=== PATIENT | male | born 1955 | race Caucasian/White ===

== ENCOUNTER 2021-01-18 22:16 | Inpatient (IN) | payer MEDICARE, SELFPAY ==
--- NOTE | ~2021-01-18 | US_ITS ---
EXAMINATION: US venous doppler LE RT DATE: 01/19/2021 08:52 INDICATION: Right lower limb edema. TECHNIQUE: Grayscale ultrasound images without and with compression and Doppler ultrasound images of the right lower extremity veins were obtained. COMPARISON: None. FINDINGS: The visualized portions of right common femoral vein, profunda (deep) femoral vein, posterior tibial veins, and greater saphenous vein outflow are patent. There is thrombus in right femoral, popliteal, and peroneal veins. IMPRESSION: 1. Deep vein thrombosis involving right femoral, popliteal, and peroneal veins. Reviewed, dictated and finalized at location B. D MEAT PACKING SUPERVISOR IMPRESSION: 1. Deep vein thrombosis involving right femoral, popliteal, and peroneal veins .
--- NOTE | ~2021-01-18 | CT_ITS ---
EXAMINATION: CT chest abdomen pelvis wo con DATE: 01/19/2021 09:25 INDICATION: Pneumonia. Liver disease. TECHNIQUE: Computed tomography (CT) of the chest, abdomen, and pelvis was performed without intraveno us contrast. Automated exposure control and iterative reconstruction technique were employed. The dos e-length product was 1213.13 mGy-cm. COMPARISON: None FINDINGS: CHEST CT: There is mild scarring at the lung apices. A calcified right lung nodule and calcified right hilar ly mph nodes are consistent with old granulomatous disease. There is mild scarring in paraspinal right l ower lobe. There is a 5 mm nodule in right upper lobe, likely benign. There is a 4 mm nodule in right middle lobe, likely benign. There are mild peripheral airspace opacities in basilar right lower lobe . No pleural effusion. The heart size is normal. There are coronary artery calcifications. No pericar dial effusion. Main pulmonary artery is enlarged, consistent with pulmonary arterial hypertension. Th ere are healing fractures of anterior left second and third ribs. There are multiple other subacute v ersus chronic rib fractures bilaterally. There is mild thoracic spondylosis. ABDOMEN/PELVIS CT: There is diffuse hepatic steatosis. The gallbladder is distended. The spleen, pancreas, adrenal gland s, and kidneys are normal. There is no urolithiasis. The bladder is compressed by a Kirby catheter. T he prostate is moderately enlarged. There is diverticulosis of the colon without evidence of divertic ulitis. There are no dilated loops of bowel. The appendix is normal. There are no pathologically enla rged lymph nodes. There is no free intraperitoneal fluid. There is a comminuted fracture of right savage tabulum with internal fixation with plates and screws. There is hematoma around the fractures. There is hematoma anterior to the pubic bones and lateral to right iliac crest. Gas in the right psoas musc le is likely from recent surgery. There is a chronic burst fracture of L4. There is moderate lumbar s pondylosis. IMPRESSION: 1. Mild peripheral airspace opacities in basilar right lung lower lobe, consistent with atelectasis/s carring versus pneumonia. 2. Gallbladder distention, which may be secondary to fasting. Correlate with physical exam to exclude acute cholecystitis. 3. Diffuse hepatic steatosis. 4. Comminuted fracture of right acetabulum status post internal fixation with associated subacute hem atomas. Reviewed, dictated and finalized at location B. INE STRIPPER CUTTER IMPRESSION: 1. Mild peripheral airspace opacities in basilar right lung lower lobe, consist ent with atelectasis/scarring versus pneumonia. 2. Gallbladder distention, which may be secondary to fasting. Correlate with ph ysical exam to exclude acute cholecystitis. 3. Diffuse hepatic steatosis. 4. Comminuted fracture of right acetabulum status post internal fixation with a ssociated subacute hematomas.
--- NOTE | ~2021-01-18 | XR_ITS ---
XR chest 2V 01/23/2021 12:19 Indication: Chest pain and weakness Procedure: AP and lateral views of the chest Comparison: 01/18/2021 Findings: Heart size normal. No focal air space disease, pulmonary edema, pleural effusion or suspect ed pneumothorax. Impression: 1: No acute cardiopulmonary disease. Reviewed, dictated and finalized at location A. UNITY MENTAL HEALTH SOCIAL WORKER Impression: 1: No acute cardiopulmonary disease.
--- NOTE | ~2021-01-18 | CT_ITS ---
EXAMINATION: CT BRAIN W/O DATE: 01/18/2021 23:04 INDICATION: Altered mental status. Confusion. TECHNIQUE: Computed tomography (CT) of the head was performed without intravenous contrast. The dose- length product was 681.00 mGy-cm. Automated exposure control and iterative reconstruction technique w ere employed. COMPARISON: No prior studies for comparison. FINDINGS: Generalized atrophy. Normal barnes-white differentiation. No acute intracranial hemorrhage, i nfarction, mass or mass effect. No ventriculomegaly or midline shift. Midline sagittal images demonstrate a normal corpus callosum, c raniovertebral junction and sella turcica. Basilar cisterns are patent. Paranasal sinuses and mastoids are pneumatized. No depressed skull fractures. IMPRESSION: 1. No acute intracranial abnormality. Reviewed, dictated and finalized at location A. N TIER
--- NOTE | ~2021-01-18 | CT_ITS ---
EXAMINATION: CT brain wo con DATE: 01/20/2021 14:05 INDICATION: Altered mental status. TECHNIQUE: Computed tomography (CT) of the head was performed without intravenous contrast. The mA wa s adjusted according to patient size. Iterative reconstruction technique was employed. The dose-lengt h product was 605.33 mGy-cm. COMPARISON: Head CT 01/18/2021 FINDINGS: There is no intracranial hemorrhage, acute infarction, or abnormal intracranial mass lesion . The ventricles are normal in size. The orbits are normal. There is mild mucosal thickening in the p aranasal sinuses. The mastoid air cells are normal. IMPRESSION: 1. Normal brain. Reviewed, dictated and finalized at location B. NG INSPECTOR IMPRESSION: 1. Normal brain.
--- NOTE | ~2021-01-18 | XR_ITS ---
EXAMINATION: XR hip RT 2V w AP pelvis EXAM DATE: 01/19/2021 02:14 INDICATION: Recent surgery, right leg injury. TECHNIQUE: Right hip frontal, 'frog leg' projections for interpretation. Frontal projection pelvis. There is no prior study for comparison. FINDINGS: Smooth right hip femoral head contour, no radiographic evidence of avascular necrosis. Th ere is right iliac plate with supporting screws. There are no acute fractures identified. There is mo derate symmetric bilateral hip primary osteoarthritis. IMPRESSION: No acute pelvic, right hip findings. Reviewed, dictated and finalized at location A. WELDER
--- NOTE | ~2021-01-18 | XR_ITS ---
XR chest 1V 01/18/2021 23:07 Indication: Transient alteration of awareness Procedure: AP view of the chest Comparison: No prior studies for comparison. Findings: Upper lobe airspace disease bilaterally. Cardiomegaly. No significant effusion, edema or pn eumothorax. Impression: 1: Bilateral upper lobe airspace disease, compatible with pneumonia. 2: Cardiomegaly. Reviewed, dictated and finalized at location A. SUPERVISOR Impression: 1: Bilateral upper lobe airspace disease, compatible with pneumonia. 2: Cardiomegaly.
--- NOTE | 2021-01-18 22:35 | ED.AMS ---
HPI - Altered Mental Status General Chief Complaint: Altered Mental Status Stated Complaint: sent for ct of head for confusion Time Seen by Provider: 01/18/21 22:33 Source: patient, EMS and RN notes reviewed Mode of arrival: EMS Limitations: altered mental status History of Present Illness HPI narrative: Patient is a 65-year-old male with a history hypertension, alcoholism of recent acetabular fracture of the right lower extremity, presenting to us from [facility] for evaluation of altered mental status. Patient reportedly had a ground-level fall on January 08 and was taken to [facility] where he was found to have the injury to the right extremity and transferred from [facility] to [facility]. Patient had surgery on January 08, and was discharged home from [facility] on January 13 to [facility]. Over the past 36 hours, patient has been increasingly confused, hallucinating, grabbing at objects in the air. This morning, patient was alert and oriented to person, place, and to time but thought that he was in the [facility]. At that point he was able to identify his . The physician overseeing the rehab facility obtained labs and noted the patient's past hemoglobin was 7.8. They had an ultrasound of the right lower leg due to increased swelling and patient had a DVT present. A stat ammonia level was drawn at 7 PM per physician. Patient reportedly has been taking oxycodone and Flexeril for pain which has now been discontinued. Per chart review and discussion with physician Dr. Villar[facility], patient had an acute DVT in the right superficial femoral vein and right popliteal into entire right peroneal veins diagnosed today. Patient given 1.5 mg/kg of Lovenox today after discussion with pharmacist on how they should dose patient. Hemoglobin on January 14 was 7.8. Patient is currently sleepy, but arousable. He is alert, oriented to person, place, and to time. Denies any acute complaints. Related Data Allergies Allergy/AdvReac Type Severity Reaction Status Date / Time No Known Allergies Allergy Verified 01/13/21 16:34 Review of Systems Review of Systems: CONSTITUTIONAL: Denies fever, chills, or sweats. EYES: Denies visual changes, redness, or discharge. ENT: Denies rhinorrhea, congestion, sore throat, or otalgia. CARDIOVASCULAR: Denies chest pain, palpitations, report right leg swelling RESPIRATORY: Denies cough or dyspnea. GASTROINTESTINAL: Denies abdominal pain, nausea, vomiting, or diarrhea. GENITOURINARY: Denies dysuria or hematuria. SKIN: Denies rash or itching. MUSCULOSKELETAL: Denies back pain, reports mild right hip pain NEUROLOGIC: Denies headache, numbness, or weakness. [facility] Past Medical History Medical History (Updated 01/19/21 @ 01:58 by Tonya Roberto MD) Acute encephalopathy Acute postoperative pain Alcoholism Hypertension Postoperative anemia due to acute blood loss Rhabdomyolysis Right acetabular fracture Transaminitis Urinary retention Family History Family History Mother Acute myocardial infarction History of blood clots Congestive heart failure Hypertension Sibling Hypertension Social History Social History (Updated 01/18/21 @ 22:52 by Tonya Roberto MD) Social History: patient lives with his and 13-year-old son. Patient lives in a 2 story home. Patient is able to live downstairs . Patient only has a half bath on the 1st level. 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 He also has a 40-year-old son that lives nearby. Smoking status: Former smoker Tobacco type: cigarettes Second hand tobacco smoke exposure: No Alcohol intake: former Alcohol use details: history of alcoholism Substance use: unknown Gender identity (if verbalized by the patient): Male Exam Narrative: GENERAL:
--- NOTE | 2021-01-18 22:52 | ECG_ITS ---
Measurements Intervals [place] Rate: 82 P: 78 MT: 197 QRS: -1 QRSD: 101 T: 69 QT: 382 QTc: 448 Interpretive Statements SINUS RHYTHM BORDERLINE ST-T WAVE ABNORMALITY- HIGH LATERAL LEADS BASELINE ARTIFACT- I, III, AVL, AVF, V1, V3 BORDERLINE ECG Electronically Signed On 01-19-2021 6:35:41 CASH ON DELIVERY CLERK by Rashaun Beltre D.O.
[2021-01-18 22:57] VITALS: BP 143/77; PULSE 88; RESP 18; TEMP 37; O2SAT 99
[2021-01-18 23:51] LABS: Basophils Absolute Auto 0.1 K/mm3 (0.0-0.1); Basophils Percent Auto 0.8 % (0.2-1.2); Eosinophils Absolute Auto 0.1 K/mm3 (0-0.3); Eosinophils Percent Auto 1.8 % (0-4.4); Hematocrit 28.2 % (42.0-52.0); Hemoglobin 8.7 g/dL (14.0-18.0); Immature Granulocyte Absolute 0.11 K/mm3 (0.00-0.031); Immature Granulocyte Percent A 1.4 % (0-0.5); Lymphocytes Absolute Auto 1.68 K/mm3 (0.9-3.2); Lymphocytes Percent Auto 21.9 % (18.3-44.2); Mean Corpuscular HGB Conc 30.9 g/dl (32-36); Mean Corpuscular Hemoglobin 29.9 pg (26-34); Mean Corpuscular Volume 96.9 fl (80-100); Mean Platelet Volume 8.9 fl (7.4-10.4); Monocytes Percent Auto 13.3 % (2.6-8.5); Neutrophils Absolute Auto 4.7 K/mm3 (1.3-6.7); Neutrophils Percent Auto 60.8 % (45.5-73.1); Platelet Count Result 415 k/mm3 (150-375); Red Blood Count 2.91 M/mm3 (4.6-6.20); Red Cell Distribution Width 15.7 % (11.5-14.5); White Blood Count 7.7 K/mm3 (4.5-10.0)
[2021-01-19] VITALS (8 sets, daily range): BP systolic 105–171; BP diastolic 72–81; PULSE 85–91; RESP 18–20; TEMP 36.3–36.5; O2SAT 97–100; BMI 28.2
[2021-01-19] LABS: Ammonia < 9 umol/L (9-30)
[2021-01-19 00:01] LABS: INR 1.2; Lactic Acid Reflex 0.7 mmol/L (0.7-2.1); Prothrombin Time 14.8 Seconds (11.1-14.7)
[2021-01-19 00:02] LABS: Alanine Aminotransferase 22 U/L (4-50); Albumin Level 3.5 g/dL (3.5-5.1); Alkaline Phosphatase 208 U/L (38-126); Anion Gap 6 mmol/L (8-16); Aspartate Amino Transferase 36 U/L (17-59); Bilirubin,Total 0.8 mg/dL (0.2-1.3); Blood Urea Nitrogen 11 mg/dL (9-20); Calcium 8.2 mg/dL (8.4-10.2); Carbon Dioxide 30 mmol/L (22-30); Chloride 101 mmol/L (98-107); Estimated Glomerular Filt Rate > 60; Glucose 101 mg/dL (65-110); Partial Thromboplastin Time 45.1 SECONDS (22.3-36.8); Potassium 3.8 mmol/L (3.4-5.0); Sodium 137 mmol/L (137-145)
[2021-01-19 00:13] LABS: Troponin I < 0.012 ng/mL (0.000-0.034)
[2021-01-19 00:14] LABS: Troponin I < 0.012 ng/mL (0.000-0.034)
[2021-01-19] MEDS: SODIUM CHLORIDE 0.9% IV 1,000 ML 999 ML IV CONT (00:25)
[2021-01-19 00:32] LABS: Add Urine Microscopic? YES; Appearance Urine Cloudy (Clear); Bilirubin Urine Negative (Negative); Blood Urine Negative (Negative); Color Urine Amber (Yellow); Glucose Urine UA Negative (Negative); Ketones Urine 2+ mg/dL (Negative); Leukocyte Esterase Ur Negative LEU/UL (Negative); Mucus Urine Heavy /lpf; Nitrate Urine Negative (Negative); Protein Urine 1+ mg/dL (Negative); Specific Grav Ur 1.024 (1.001-1.035); WBC Urine 0-3 /hpf
[2021-01-19 00:35] LABS: Amphetamine Screen Urine Negative (Negative); Barbiturate Screen Urine Negative (Negative); Benzodiazepines Screen Urine Negative (Negative); Cannabinoid Screen Urine Negative (Negative); Cocaine Screen Urine Negative (Negative); Methadone Screen Urine Negative (Negative); Opiate Screen Urine Positive (Negative); Phencyclidine Screen Urine Negative (Negative)
[2021-01-19 02:12] LABS: Creatine Kinase 105 U/L (55-170)
--- NOTE | 2021-01-19 03:26 | PC.NURSE ---
med brown liquid stool bedding changed.
--- NOTE | 2021-01-19 03:35 | PC.NURSE ---
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
--- NOTE | 2021-01-19 03:42 | ADMGEN ---
This patient, Truong Aranda, was admitted to 3 [facility] Surg Room 333-01. Patient/family oriented to hospital policies and general routines including ID bracelet, bed and alarms, visiting hours, pain management, procedures, bathroom and other care routines, personal items, smoking policy, room service/diet, and visiting hours. Information on how to activate the Rapid Response Team has been discussed. Patient/Family are encouraged to report perceived risks to care and to ask questions if they do not understand what they are told or what they should do.
--- NOTE | 2021-01-19 04:30 | PM.IMHP ---
H&P: HPI History of Present Illness Date/Time: 01/19/21 04:30 Chief Complaint: Altered mental status Narrative: Patient is a 65-year-old male presenting to us from [facility] for evaluation of altered mental status. Patient reportedly had a ground-level fall on January 08 and was taken to [facility] where he was found to have the injury to the right extremity and transferred from [facility] to [facility]. Patient had surgery on January 08, and was discharged from [facility] on January 13 to [facility]. Over the past 36 hours, patient has been increasingly confused, hallucinating, grabbing at objects in the air. This morning, patient was alert and oriented to person, place, and to time but thought that he was in the [facility]. At that point he was able to identify his . The physician overseeing the rehab facility obtained labs and noted the patient's past hemoglobin was 7.8. They had an ultrasound of the right lower leg due to increased swelling and patient had a DVT present. Ammonia level was checked which was normal LFTs compared to baseline day of admission. Patient had been on oxycodone and Flexeril for the pain which has been discontinued as well. Patient reportedly has been taking oxycodone and Flexeril for pain which has now been discontinued. Patient was noted to have acute DVT in the right superficial femoral pain in right popliteal into entire right peroneal veins does diagnosed yesterday. Patient has been given 1.5 milligram/kilogram of Lovenox dose. Patient was then transferred to [facility] for further evaluation and management. CT scan of the head was done which was unremarkable. Chest x-ray however showed bilateral upper lobe airspace disease compatible with pneumonia along with, cardiomegaly. With sepsis in of healthcare associated pneumonia is getting admitted for further evaluation and treatment. He is currently confused and not a very good historian. Most of the history is taken from the medical records. Review of Systems Review of Systems: ROS unobtainable: Yes unobtainable due to medical condition and unobtainable due to mental status PMFSH Past Medical History Medical History (Updated 01/19/21 @ 01:58 by Tonya Roberto MD) Acute encephalopathy Acute postoperative pain Alcoholism Hypertension Postoperative anemia due to acute blood loss Rhabdomyolysis Right acetabular fracture Transaminitis Urinary retention Family History Family History Mother Acute myocardial infarction History of blood clots Congestive heart failure Hypertension Sibling Hypertension Social History Social History (Updated 01/18/21 @ 22:52 by Tonya Roberto MD) Social History: patient lives with his and 13-year-old son. Patient lives in a 2 story home. Patient is able to live downstairs . Patient only has a half bath on the 1st level. 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 He also has a 40-year-old son that lives nearby. Smoking status: Former smoker Second hand tobacco smoke exposure: No Alcohol intake: former Alcohol use details: history of alcoholism Substance use: unknown Gender identity (if verbalized by the patient): Male Spiritual care concerns: No Meds Home Medications and Allergies Allergies Allergy/AdvReac Type Severity Reaction Status Date / Time No Known Allergies Allergy Verified 01/19/21 04:58 Vital Signs Vital Signs - 24 hr 01/18/21 22:57 01/19/21 02:58 01/19/21 04:06 Temperature 98.6 F 97.7 F Pulse Rate 88 85 88 Respiratory Rate 18 20 18 Blood Pressure 143/77 H 164/75 H 158/72 H Pulse Oximetry 99 97 97 Exam Narrative: GENERAL: Sleepy but arousable verbalizes some sentences, pale, conversant HEAD: Normocephalic, atraumatic. EYES: PERRLA and EOMI. ENT: Nares clear, no rhinorrhea or epistaxis. Mucous m
[2021-01-19 05:05] LABS: Alveolar/Arterial O2 Gradient 38.2 mmHg; Base Excess ABG 0.7 mEq/l (+/-2.0); Fractional Inspired Oxygen 21 %; HCO3 ABG 24.5 mEq/l (22.0-26.0); Oxygen Content ABG 16.7 %vol (16.0-22.0); Oxygen Saturation ABG 94.4 % (95.0-100.0); Oxyhemoglobin 92.8 % THb (90.0-100.0); PCO2 ABG 36.4 mmHg (35.0-45.0); PO2 ABG 67.9 mmHg (80.0-100.0); PO2 FiO2 Ratio Arterial Blood 3.23 %; Total Hemoglobin 12.8 g/dL (12.0-18.0); pH ABG 7.446 (7.350-7.450)
[2021-01-19 05:08] LABS: Device ROOM AIR; Modified Allen's Test Pass; Site Drawn LEFT RADIAL
[2021-01-19] MEDS: ENOXAPARIN 100 MG/ML SYRINGE SUB-Q ×2 (08:02→17:15)
[2021-01-19] MEDS: SODIUM CHLORIDE 0.9% IV 1,000 ML 70 ML IV CONT (08:03)
[2021-01-19 08:43] LABS: Glucose Point of Care 82 mg/dl (65-105)
[2021-01-19 09:10] LABS: Hemoglobin A1C 4.9 % (<5.7)
[2021-01-19 12:05] LABS: Glucose Point of Care 98 mg/dl (65-105)
--- NOTE | 2021-01-19 16:14 | PM.IMPN ---
Progress Note: A&P Assessment and Plan (1) Acute encephalopathy: Code(s): G93.40 - Encephalopathy, unspecified Status: Acute Assessment and Plan: There are reports that the patient was hallucinating. Patient is aware of this and states he has not had any hallucinations today but does remember having some yesterday. Unfortunately, RN states that he has been having hallucinations today as well. He has no history of this. He is alert oriented x4 for me. This could be from pain medication or baclofen. He also has alcoholic and had a history of alcohol withdrawal but has not had a drink for nearly 2 weeks so this seems less likely. We will draw a B12 and folate. No signs of infection with the UA. Chest abdomen pelvis CT shows possible pneumonia. Medications reviewed. Will monitor (2) S/P ORIF (open reduction internal fixation) fracture: Code(s): Z98.890 - Other specified postprocedural states; Z87.81 - Personal history of (healed) traumatic fracture Status: Acute Assessment and Plan: Continue PT and OT with weight-bearing status -patient history of a fall and had surgery at [facility] 01/08/21 -incision sites clean and dry (3) Postoperative anemia due to acute blood loss: Code(s): D62 - Acute posthemorrhagic anemia Status: Acute Assessment and Plan: Hemoglobin stable, 8.7 around midnight. Will redraw hemoglobin now -he has a subacute hematoma around the fracture anterior to the pubic bone and lateral to the right iliac crest. -will monitor his hemoglobin while on Lovenox. No signs of bleeding at this time (4) Urinary retention: Code(s): R33.9 - Retention of urine, unspecified Status: Acute Assessment and Plan: Continue catheterization -follow-up with urology for voiding trial -continue Flomax (5) DVT (deep venous thrombosis): Code(s): I82.409 - Acute embolism and thrombosis of unspecified deep veins of unspecified lower extremity Status: Acute Assessment and Plan: Right leg DVT likely due to surgery -continue Lovenox -will haley DOAC (6) Hip fracture: Code(s): S72.009A - Fracture of unspecified part of neck of unspecified femur, initial encounter for closed fracture Status: Acute Assessment and Plan: As above (7) Hypertension: Code(s): I10 - Essential (primary) hypertension Status: Acute Assessment and Plan: last bp 105/78 -continue amlodipine (8) Alcoholism: Code(s): F10.20 - Alcohol dependence, uncomplicated Status: Acute Assessment and Plan: Patient states he drinks 4 large glasses a wine daily. He is unable to tell me how many bottles he drinks because he usually drinks from a box. He had no tremors on exam. He had alcohol withdrawal at [facility]. Will continue folic acid and thiamine (9) Pneumonia: Code(s): J18.9 - Pneumonia, unspecified organism Status: Acute Assessment and Plan: Possible pneumonia on the chest CT -continue cefepime and vancomycin -await COVID PCR Additional Plan No RUQ pain or nausea/vomiting/abdominal pain. Gallbaldder distention on CT likely due to fasting. No signs of acute cholecystitis Time Spent With Patient Time with patient: 25 - 35 minutes Subjective Date/time seen: 01/19/21 16:14 Interval history: Pt is a 65-year-old male here for altered mental status. Patient was seen today and has no complaints. He said he felt like he was hallucinating yesterday but has not had any further hallucinations. He has some 5/10 pain in his hip but overall is doing okay. He denies chest pain, shortness of breath, fevers, chills, cough, nausea, vomiting, abdominal pain or headache. Review of Systems Review of Systems: All systems reviewed & are unremarkable except as noted in HPI and below Exam Narrative: General: Well developed well nourished patient in [facility] HEENT: normocepha
[2021-01-19 16:22] LABS: Hematocrit 26.9 % (42.0-52.0); Hemoglobin 8.4 g/dL (14.0-18.0)
[2021-01-19 16:37] LABS: Glucose Point of Care 94 mg/dl (65-105)
[2021-01-19] MEDS: SENNA/DOCUSATE SODIUM TABLET 2 TAB PO (21:21)
[2021-01-19] MEDS: TAMSULOSIN HCL 0.4 MG CAPSULE PO (21:22)
[2021-01-19] MEDS: HYDROcodone/acetaminophen (*CRX) 5-325 MG TABLET 1 TAB PO (21:22)
[2021-01-20 00:29] LABS: Glucose Point of Care 97 mg/dl (65-105)
[2021-01-20] MEDS: ENOXAPARIN 100 MG/ML SYRINGE SUB-Q ×2 (05:18→17:28)
[2021-01-20 05:43] VITALS: BP 158/80; PULSE 79; RESP 18; TEMP 36.6; O2SAT 98
[2021-01-20 06:52] LABS: Basophils Absolute Auto 0.1 K/mm3 (0.0-0.1); Basophils Percent Auto 0.8 % (0.2-1.2); Eosinophils Absolute Auto 0.2 K/mm3 (0-0.3); Eosinophils Percent Auto 2.6 % (0-4.4); Hematocrit 26.1 % (42.0-52.0); Hemoglobin 8.1 g/dL (14.0-18.0); Immature Granulocyte Absolute 0.05 K/mm3 (0.00-0.031); Immature Granulocyte Percent A 0.8 % (0-0.5); Lymphocytes Absolute Auto 0.97 K/mm3 (0.9-3.2); Lymphocytes Percent Auto 14.9 % (18.3-44.2); Mean Corpuscular Hemoglobin 29.2 pg (26-34); Mean Corpuscular Volume 94.2 fl (80-100); Mean Platelet Volume 8.9 fl (7.4-10.4); Monocytes Absolute Auto 0.9 K/mm3 (0.1-0.6); Monocytes Percent Auto 13.1 % (2.6-8.5); Neutrophils Absolute Auto 4.4 K/mm3 (1.3-6.7); Neutrophils Percent Auto 67.8 % (45.5-73.1); Platelet Count Result 386 k/mm3 (150-375); Red Blood Count 2.77 M/mm3 (4.6-6.20); Red Cell Distribution Width 15.1 % (11.5-14.5); White Blood Count 6.5 K/mm3 (4.5-10.0)
[2021-01-20 07:06] LABS: Alanine Aminotransferase 21 U/L (4-50); Albumin Level 3.1 g/dL (3.5-5.1); Alkaline Phosphatase 219 U/L (38-126); Anion Gap 6 mmol/L (8-16); Aspartate Amino Transferase 31 U/L (17-59); Bilirubin,Total 0.7 mg/dL (0.2-1.3); Blood Urea Nitrogen 8 mg/dL (9-20); Calcium 7.7 mg/dL (8.4-10.2); Carbon Dioxide 25 mmol/L (22-30); Chloride 104 mmol/L (98-107); Estimated CRCL calculation 147 ml/min; Estimated Glomerular Filt Rate > 60; Glucose 108 mg/dL (65-110); Potassium 3.7 mmol/L (3.4-5.0); Sodium 135 mmol/L (137-145)
[2021-01-20 08:00] VITALS: O2SAT 98
[2021-01-20] MEDS: amLODIPine BESYLATE 5 MG TABLET PO (08:04)
[2021-01-20] MEDS: FOLIC ACID 1 MG TABLET PO (08:04)
[2021-01-20] MEDS: THIAMINE HCL 100 MG TABLET PO (08:04)
[2021-01-20 08:06] LABS: Folic Acid 15.4 ng/mL (2.76->20)
[2021-01-20 08:27] LABS: Glucose Point of Care 105 mg/dl (65-105)
[2021-01-20 12:15] LABS: Glucose Point of Care 88 mg/dl (65-105)
[2021-01-20 13:58] LABS: EDCOVIDSCREEN Negative (Negative)
[2021-01-20 14:00] VITALS: BP 178/63; PULSE 90; RESP 17; TEMP 36.6; O2SAT 95
[2021-01-20] MEDS: SODIUM CHLORIDE 0.9% IV 1,000 ML 70 ML IV CONT (14:17)
[2021-01-20 14:45] LABS: Vancomycin Trough 8.4 ug/mL (10.0-20.0)
--- NOTE | 2021-01-20 14:59 | WPDNEURCNPN ---
Consult date: 01/20/21 HPI: Truong Aranda is a 65 year old male admitted to the hospital [facility] for the complaints of altered mental status patient reportedly had a ground level fall on 01/08 21 when he was taken to [facility] where he was found to have the injury to the right extremity and was transferred to send to [facility] patient underwent surgery on January 08, 2021 and was [facility] from [facility]. Over the last 36 hours patient was noted leaky increasingly confused, was hallucinating and grabbing objects in the air in the morning he was awake alert oriented to person place and time but thought he was in the [facility] though he was able to identify his routine labs were obtained his hemoglobin was only 7.8 ultrasound the right lower extremity due to increased swelling was done and was found to have DVT . his ammonia level was unchanged psoas the liver functions enzymes but patient had been on oxycodone Flexeril for the pain which were discontinued as he was noted to have acute DVT in the right superficial femoral vein and in the right popliteal vein and also right peroneal veins he was started on Lovenox transfer to [facility] for further care CT scan of the head done in the emergency room revealed no acute bleed and chest x-ray documented pneumonia along with the cardiomegaly in the past patient has the history of alcoholism, hypertension, right AC tabular fracture, urinary retention, and rhabdomyolysis. He is a former smoker former alcohol intake a with history of alcoholism in the past. Review of Systems Review of Systems: All systems reviewed & are unremarkable except as noted in HPI and below PMFSH Past Medical History Medical History Acute encephalopathy Acute postoperative pain Alcoholism Hypertension Postoperative anemia due to acute blood loss Rhabdomyolysis Right acetabular fracture Transaminitis Urinary retention Family History Family History Mother Acute myocardial infarction History of blood clots Congestive heart failure Hypertension Sibling Hypertension Social History Social History Social History: patient lives with his and 13-year-old son. Patient lives in a 2 story home. Patient is able to live downstairs . Patient only has a half bath on the 1st level. 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 He also has a 40-year-old son that lives nearby. Smoking status: Former smoker Second hand tobacco smoke exposure: No Alcohol intake: former Alcohol use details: history of alcoholism Substance use: unknown Gender identity (if verbalized by the patient): Male Spiritual care concerns: No Meds Home Medications and Allergies Home Medications Medication Instructions Recorded Confirmed Type Adults Multivitamin 1 tablet DAILY 01/19/21 01/19/21 History Artificial Tears 1 drp TID PRN 01/19/21 01/19/21 History Lidocaine Pain Relief 1 patch DAILY 01/19/21 01/19/21 History Senna Plus (senna-docusate) 2 tablet HS 01/19/21 01/19/21 History Tums 200 mg Q2H PRN 01/19/21 01/19/21 History amlodipine 5 mg DAILY 01/19/21 01/19/21 History cefdinir 300 mg Q12H 01/19/21 01/19/21 History cyclobenzaprine 10 mg Q8H 01/19/21 01/19/21 History enoxaparin 150 mg SUBCUT DAILY 01/19/21 01/19/21 History magnesium citrate 150 ml PRN PRN 01/19/21 01/19/21 History magnesium hydroxide 30 ml PRN PRN 01/19/21 01/19/21 History melatonin 3 mg HS PRN 01/19/21 01/19/21 History ondansetron HCl 4 mg Q4-6H PRN 01/19/21 01/19/21 History oxycodone-acetaminophen 5 - 325 mg Q8H PRN 01/19/21 01/19/21 History polyethylene glycol 17 g DAILY 01/19/21 01/19/21 History tamsulosin 0.4 mg HS 01/19/21 01/19/21 History thiamine HCl (vitamin B1) 100 mg DAILY 01/19/21 01/19/21 History tramadol 50 mg Q6H PRN 01/19/21
[2021-01-20 16:14] LABS: Alveolar/Arterial O2 Gradient 38.9 mmHg; Base Excess ABG -2.1 mEq/l (+/-2.0); Carboxyhemoglobin 0.3 % THb (0-2.0); Device ROOM AIR; Fractional Inspired Oxygen 21 %; HCO3 ABG 20.8 mEq/l (22.0-26.0); Methemoglobin ABG 0.2 %THb (0-1.5); Modified Allen's Test Pass; Oxygen Content ABG 14.5 %vol (16.0-22.0); Oxyhemoglobin 94.3 % THb (90.0-100.0); PCO2 ABG 29.7 mmHg (35.0-45.0); PO2 ABG 75.3 mmHg (80.0-100.0); PO2 FiO2 Ratio Arterial Blood 3.59 %; Reduced Hemoglobin 5.2 %THb (0-5.0); Site Drawn RIGHT RADIAL; Total Hemoglobin 10.9 g/dL (12.0-18.0); pH ABG 7.464 (7.350-7.450)
[2021-01-20 16:25] LABS: Procalcitonin 0.1 ng/mL
[2021-01-20 16:58] LABS: Glucose Point of Care 99 mg/dl (65-105)
--- NOTE | 2021-01-20 17:11 | PM.IMPN ---
Progress Note: A&P Assessment and Plan (1) Acute encephalopathy: Code(s): G93.40 - Encephalopathy, unspecified Status: Acute Assessment and Plan: There are reports that the patient was hallucinating throughout the day and patient is aware of this. He is alert oriented x4 for me but notices things vanished and that he hears and sees things that are not there. This could be from pain medication or baclofen but I would suspect this would have improved by now. He also has alcoholic and had a history of alcohol withdrawal but has not had a drink for nearly 2 weeks so this seems less likely. B12 and folate are normal. No signs of infection with the UA. Blood cultures have no growth to date. Chest abdomen pelvis CT shows possible pneumonia but I doubt this is the cause of his confusion. Medications reviewed. TSH and ammonia normal. CT of the brain x2 negative. No signs of meningitis on exam. Will consult neurology. May possibly need to contact psych. Consider starting Seroquel. (2) S/P ORIF (open reduction internal fixation) fracture: Code(s): Z98.890 - Other specified postprocedural states; Z87.81 - Personal history of (healed) traumatic fracture Status: Acute Assessment and Plan: Continue PT and OT with weight-bearing status -patient history of a fall and had surgery at [facility] 01/08/21 -incision sites clean and dry (3) Postoperative anemia due to acute blood loss: Code(s): D62 - Acute posthemorrhagic anemia Status: Acute Assessment and Plan: Hemoglobin stable, 8.1 -he has a subacute hematoma around the fracture anterior to the pubic bone and lateral to the right iliac crest. -will monitor his hemoglobin (4) Urinary retention: Code(s): R33.9 - Retention of urine, unspecified Status: Acute Assessment and Plan: Continue catheterization -follow-up with urology for voiding trial -continue Flomax (5) DVT (deep venous thrombosis): Code(s): I82.409 - Acute embolism and thrombosis of unspecified deep veins of unspecified lower extremity Status: Acute Assessment and Plan: Right leg DVT likely due to surgery -will transition Lovenox to Xarelto (6) Hip fracture: Code(s): S72.009A - Fracture of unspecified part of neck of unspecified femur, initial encounter for closed fracture Status: Acute Assessment and Plan: As above (7) Hypertension: Code(s): I10 - Essential (primary) hypertension Status: Acute Assessment and Plan: last bp 158/80 -continue amlodipine (8) Alcoholism: Code(s): F10.20 - Alcohol dependence, uncomplicated Status: Acute Assessment and Plan: Patient states he drinks 4 large glasses a wine daily. He is unable to tell me how many bottles he drinks because he usually drinks from a box. He had a slight tremor on exam with movement. [facility] but this consisted of mostly tremors and no hallucinations according to the son. Will continue folic acid and thiamine (9) Pneumonia: Code(s): J18.9 - Pneumonia, unspecified organism Status: Acute Assessment and Plan: Possible pneumonia on the chest CT -continue cefepime and vancomycin -COVID-19 negative Time Spent With Patient Time with patient: 25 - 35 minutes Subjective Date/time seen: 01/20/21 17:11 Interval history: Pt is a 65-year-old male here for altered mental status. Patient was seen today and states he has little bit of pain in his hip that he rates a 5/10. He has no complaints such as chest pain, shortness of breath, fevers, chills, nausea, vomiting, abdominal pain, diarrhea or constipation. I asked him about his hallucinations and he does say he notices them. He says that when he has a pencil in his hand and he goes to right, it suddenly vanishes. He says he has never had this problem before. I called and spoke to the son, Mary
[2021-01-20 18:14] LABS: SARS-CoV-2 RNA PCR Negative
[2021-01-20] MEDS: TAMSULOSIN HCL 0.4 MG CAPSULE PO (21:52)
[2021-01-20] MEDS: SENNA/DOCUSATE SODIUM TABLET 2 TAB PO (21:52)
[2021-01-20] MEDS: MELATONIN 3 MG TABLET PO (21:54)
[2021-01-20] MEDS: HYDROcodone/acetaminophen (*CRX) 5-325 MG TABLET 1 TAB PO (21:54)
[2021-01-20 22:00] VITALS: BP 147/74; PULSE 95; RESP 20; TEMP 36.6; O2SAT 95
[2021-01-21 01:07] LABS: Glucose Point of Care 118 mg/dl (65-105)
[2021-01-21] MEDS: ENOXAPARIN 100 MG/ML SYRINGE SUB-Q (05:58)
[2021-01-21] MEDS: SODIUM CHLORIDE 0.9% IV 1,000 ML 70 ML IV CONT (05:59)
[2021-01-21 06:00] VITALS: BP 157/87; PULSE 81; RESP 20; TEMP 36.7; O2SAT 98
[2021-01-21 06:53] LABS: Basophils Percent Auto 0.4 % (0.2-1.2); Eosinophils Absolute Auto 0.2 K/mm3 (0-0.3); Eosinophils Percent Auto 2.1 % (0-4.4); Hematocrit 26.2 % (42.0-52.0); Hemoglobin 8.2 g/dL (14.0-18.0); Immature Granulocyte Absolute 0.04 K/mm3 (0.00-0.031); Immature Granulocyte Percent A 0.5 % (0-0.5); Lymphocytes Absolute Auto 1.26 K/mm3 (0.9-3.2); Lymphocytes Percent Auto 16.4 % (18.3-44.2); Mean Corpuscular HGB Conc 31.3 g/dl (32-36); Mean Corpuscular Hemoglobin 29.4 pg (26-34); Mean Corpuscular Volume 93.9 fl (80-100); Mean Platelet Volume 8.9 fl (7.4-10.4); Monocytes Absolute Auto 0.9 K/mm3 (0.1-0.6); Monocytes Percent Auto 11.9 % (2.6-8.5); Neutrophils Absolute Auto 5.3 K/mm3 (1.3-6.7); Neutrophils Percent Auto 68.7 % (45.5-73.1); Platelet Count Result 398 k/mm3 (150-375); Red Blood Count 2.79 M/mm3 (4.6-6.20); Red Cell Distribution Width 15.3 % (11.5-14.5); White Blood Count 7.7 K/mm3 (4.5-10.0)
[2021-01-21] MEDS: HYDROcodone/acetaminophen (*CRX) 5-325 MG TABLET 1 TAB PO ×3 (06:55→22:31)
[2021-01-21 07:08] LABS: Anion Gap 2 mmol/L (8-16); Blood Urea Nitrogen 6 mg/dL (9-20); CRP 6.4 mg/dL (<1.0); Calcium 7.8 mg/dL (8.4-10.2); Carbon Dioxide 29 mmol/L (22-30); Chloride 107 mmol/L (98-107); Estimated CRCL calculation 125 ml/min; Estimated Glomerular Filt Rate > 60; Glucose 110 mg/dL (65-110); Potassium 3.5 mmol/L (3.4-5.0); Sodium 138 mmol/L (137-145)
[2021-01-21 08:14] LABS: Procalcitonin 0.1 ng/mL
[2021-01-21] MEDS: amLODIPine BESYLATE 5 MG TABLET PO (10:13)
[2021-01-21] MEDS: THIAMINE HCL 100 MG TABLET PO (10:13)
[2021-01-21] MEDS: FOLIC ACID 1 MG TABLET PO (10:13)
--- NOTE | 2021-01-21 10:47 | PM.IMPN ---
Progress Note: A&P Assessment and Plan (1) Acute encephalopathy: Code(s): G93.40 - Encephalopathy, unspecified <Anahi Gore PA-C - Last Filed: 01/21/21 10:56> Status: Acute <Anahi Gore PA-C - Last Filed: 01/21/21 10:56> Assessment and Plan: Pt is aware of his hallucinations from time to time but they are persistent. He is alert oriented x4 for me but notices things vanished and that he hears and sees things that are not there. This could be from pain medication or baclofen but I would suspect this would have improved by now. He also has alcoholic and had a history of alcohol withdrawal but has not had a drink for nearly 3 weeks so this seems less likely. B12 and folate are normal. No signs of infection with the UA. Blood cultures have no growth to date. Chest abdomen pelvis CT shows possible pneumonia but I doubt this is the cause of his confusion. Medications reviewed. Will switch cefepime to zosyn to see if this helps. TSH and ammonia normal. CT of the brain x2 negative. No signs of meningitis on exam. Will consult neurology. Order brain MRI. May possibly need to contact psych. Consider starting Seroquel. <Anahi Gore PA-C - Last Filed: 01/21/21 10:56> (2) S/P ORIF (open reduction internal fixation) fracture: Code(s): Z98.890 - Other specified postprocedural states; Z87.81 - Personal history of (healed) traumatic fracture <Anahi Gore PA-C - Last Filed: 01/21/21 10:56> Status: Acute <Anahi Gore PA-C - Last Filed: 01/21/21 10:56> Assessment and Plan: Continue PT and OT with weight-bearing status -patient history of a fall and had surgery at [facility] 01/08/21 -incision sites clean and dry <Anahi Gore PA-C - Last Filed: 01/21/21 10:56> (3) Postoperative anemia due to acute blood loss: Code(s): D62 - Acute posthemorrhagic anemia <Anahi Gore PA-C - Last Filed: 01/21/21 10:56> Status: Acute <Anahi WaiteKarthik REJI Gore - Last Filed: 01/21/21 10:56> Assessment and Plan: Hemoglobin stable, 8.2 -he has a subacute hematoma around the fracture anterior to the pubic bone and lateral to the right iliac crest. -will monitor his hemoglobin <Anahi Gore PA-C - Last Filed: 01/21/21 10:56> (4) Urinary retention: Code(s): R33.9 - Retention of urine, unspecified <Anahi Gore PA-C - Last Filed: 01/21/21 10:56> Status: Acute <Anahi WaiteKarthik REJI Gore - Last Filed: 01/21/21 10:56> Assessment and Plan: Continue catheterization -follow-up with urology for voiding trial -continue Flomax -pt pulled at his cath and it dislodged. It was advanced to the correct position and then had almost 1000mls of UOP. There have been instances of lauri blood from the meatus. Suspect due to trauma but pt doesn't have much pain. Probably worsened due to lovenox. Will monitor this area. No urology or imaging sudies needed at this time <Anahi Gore PA-C - Last Filed: 01/21/21 10:56> (5) DVT (deep venous thrombosis): Code(s): I82.409 - Acute embolism and thrombosis of unspecified deep veins of unspecified lower extremity <Anahi Gore PA-C - Last Filed: 01/21/21 10:56> Status: Acute <Anahi Gore PA-C - Last Filed: 01/21/21 10:56> Assessment and Plan: Right leg DVT likely due to surgery -will transition Lovenox to Xarelto tonight since his hgb appears stable. Pulses intact. <Anahi Gore PA-C - Last Filed: 01/21/21 10:56> (6) Hip fracture: Code(s): S72.009A - Fracture of unspecified part of neck of unspecified femur, initial encounter for closed fracture <Anahi Gore PA-C - Last Filed: 01/21/21 10:56> Status: Acute <Anahi Gore PA-C - Last Filed: 01/21/21 10:56> Assessment and Plan: As above <Anahi Gore PA-C - Last Filed: 01/21/21 10:56> (7)
[2021-01-21 11:41] LABS: Glucose Point of Care 92 mg/dl (65-105)
[2021-01-21 14:00] VITALS: BP 178/74; PULSE 92; RESP 18; TEMP 36.2; O2SAT 98
[2021-01-21 14:30] VITALS: BP 148/78
[2021-01-21 15:59] LABS: Alveolar/Arterial O2 Gradient 74.6 mmHg; Base Excess ABG 1.2 mEq/l (+/-2.0); Carboxyhemoglobin 0.3 % THb (0-2.0); Fractional Inspired Oxygen 21 %; HCO3 ABG 25.6 mEq/l (22.0-26.0); Methemoglobin ABG 0.3 %THb (0-1.5); Oxygen Content ABG 6.8 %vol (16.0-22.0); PCO2 ABG 39.8 mmHg (35.0-45.0); PO2 FiO2 Ratio Arterial Blood 1.31 %; Reduced Hemoglobin 48.2 %THb (0-5.0); Total Hemoglobin 9.4 g/dL (12.0-18.0); pH ABG 7.426 (7.350-7.450)
[2021-01-21 16:01] LABS: PO2 ABG 27.5 mmHg (80.0-100.0)
[2021-01-21 16:02] LABS: Oxygen Saturation ABG 53.1 % (95.0-100.0)
[2021-01-21 16:03] LABS: Modified Allen's Test Pass; Oxyhemoglobin 51.2 % THb (90.0-100.0); Site Drawn LEFT RADIAL
[2021-01-21 16:04] LABS: Device ROOM AIR
[2021-01-21 16:48] LABS: Vancomycin Trough 12.3 ug/mL (10.0-20.0)
[2021-01-21 17:31] LABS: Glucose Point of Care 85 mg/dl (65-105)
[2021-01-21] MEDS: RIVAROXABAN 15 MG TABLET PO (18:42)
[2021-01-21 22:00] VITALS: BP 167/78; PULSE 87; RESP 14; TEMP 36.9; O2SAT 98
[2021-01-21] MEDS: SENNA/DOCUSATE SODIUM TABLET 2 TAB PO (22:26)
[2021-01-21] MEDS: TAMSULOSIN HCL 0.4 MG CAPSULE PO (22:26)
[2021-01-21] MEDS: MELATONIN 3 MG TABLET PO (22:31)
--- NOTE | 2021-01-22 00:16 | PC.NURSE ---
patient stated he does NOT have diabetes and refused fingerstick. While he answered the axo questions appropriately he is still very confused. Put an order in for ha1c to be drawn with morning labs since the patient has not had one drawn and Dr. Randall had mentioned getting one in his H&P
[2021-01-22 06:00] VITALS: BP 164/77; PULSE 74; RESP 12; TEMP 37.2; O2SAT 98
[2021-01-22 06:45] LABS: Basophils Absolute Auto 0.1 K/mm3 (0.0-0.1); Eosinophils Absolute Auto 0.2 K/mm3 (0-0.3); Eosinophils Percent Auto 4.2 % (0-4.4); Hematocrit 27.2 % (42.0-52.0); Hemoglobin 8.6 g/dL (14.0-18.0); Immature Granulocyte Absolute 0.03 K/mm3 (0.00-0.031); Immature Granulocyte Percent A 0.6 % (0-0.5); Lymphocytes Absolute Auto 1.06 K/mm3 (0.9-3.2); Lymphocytes Percent Auto 20.3 % (18.3-44.2); Mean Corpuscular HGB Conc 31.6 g/dl (32-36); Mean Corpuscular Hemoglobin 29.5 pg (26-34); Mean Corpuscular Volume 93.2 fl (80-100); Mean Platelet Volume 8.9 fl (7.4-10.4); Monocytes Absolute Auto 0.6 K/mm3 (0.1-0.6); Monocytes Percent Auto 10.7 % (2.6-8.5); Neutrophils Absolute Auto 3.3 K/mm3 (1.3-6.7); Neutrophils Percent Auto 63.2 % (45.5-73.1); Platelet Count Result 379 k/mm3 (150-375); Red Blood Count 2.92 M/mm3 (4.6-6.20); Red Cell Distribution Width 15.4 % (11.5-14.5); White Blood Count 5.2 K/mm3 (4.5-10.0)
[2021-01-22 06:59] LABS: Alanine Aminotransferase 19 U/L (4-50); Albumin Level 2.9 g/dL (3.5-5.1); Alkaline Phosphatase 238 U/L (38-126); Anion Gap 4 mmol/L (8-16); Aspartate Amino Transferase 28 U/L (17-59); Bilirubin,Total 0.6 mg/dL (0.2-1.3); Blood Urea Nitrogen 5 mg/dL (9-20); CRP 5.2 mg/dL (<1.0); Calcium 7.9 mg/dL (8.4-10.2); Carbon Dioxide 27 mmol/L (22-30); Chloride 108 mmol/L (98-107); Estimated CRCL calculation 147 ml/min; Estimated Glomerular Filt Rate > 60; Glucose 119 mg/dL (65-110); Potassium 3.7 mmol/L (3.4-5.0); Sodium 139 mmol/L (137-145)
[2021-01-22 07:21] LABS: Hemoglobin A1C 4.9 % (<5.7)
[2021-01-22 08:20] LABS: Glucose Point of Care 106 mg/dl (65-105)
[2021-01-22] MEDS: RIVAROXABAN 15 MG TABLET PO ×2 (09:36→18:05)
[2021-01-22] MEDS: FOLIC ACID 1 MG TABLET PO (09:36)
[2021-01-22] MEDS: THIAMINE HCL 100 MG TABLET PO (09:36)
[2021-01-22] MEDS: amLODIPine BESYLATE 5 MG TABLET PO (09:36)
[2021-01-22] MEDS: HYDROcodone/acetaminophen (*CRX) 5-325 MG TABLET 1 TAB PO (09:40)
[2021-01-22 11:57] LABS: Glucose Point of Care 143 mg/dl (65-105)
--- NOTE | 2021-01-22 12:05 | PM.IMPN ---
Progress Note: A&P Assessment and Plan (1) Acute encephalopathy: Code(s): G93.40 - Encephalopathy, unspecified Status: Acute Assessment and Plan: I feel as these are getting less frequent but they are still persistent. Will order brain MRI and stop all narcotics. Initially though to be due to infection or abx but pt has clinical improvement in this but still has his hallucinations. No other medical reason for this. It seems to be happening around 6pm every night. He says he has no hx of this. Son states he is 'completely different'. Must include underlying psych component in the differential. Pt may have undiagnosed psych disorder that he unknowingly uses alcohol to treat. Today he is alert oriented x4 for me (unchanged). B12 and folate are normal. No signs of infection with the UA. Blood cultures have no growth to date. Chest abdomen pelvis CT shows possible pneumonia but I doubt this is the cause of his confusion. Medications reviewed. TSH and ammonia normal. CT of the brain x2 negative. No signs of meningitis on exam. May possibly need to contact psych. Consider starting Seroquel if he does not improve with stopping norco. Neurology consulted, may need to consult psych if above work up and plan does not improve his condition. Will repeat CXR as well. (2) S/P ORIF (open reduction internal fixation) fracture: Code(s): Z98.890 - Other specified postprocedural states; Z87.81 - Personal history of (healed) traumatic fracture Status: Acute Assessment and Plan: Continue PT and OT with weight-bearing status -patient history of a [facility] and [facility] -incision sites clean and dry -obtain records from [facility] (3) Postoperative anemia due to acute blood loss: Code(s): D62 - Acute posthemorrhagic anemia Status: Acute Assessment and Plan: Hemoglobin stable, 8.6 -he has a subacute hematoma around the fracture anterior to the pubic bone and lateral to the right iliac crest. -will monitor his hemoglobin (4) Urinary retention: Code(s): R33.9 - Retention of urine, unspecified Status: Acute Assessment and Plan: Continue catheterization -follow-up with urology for voiding trial -continue Flomax -pt pulled at his cath 01/20 and it dislodged. It was advanced to the correct position and then had almost 1000mls of UOP. There have been instances of lauri blood from the meatus 01/21 but no new reports. Suspect due to trauma but pt doesn't have much pain. Probably worsened due to lovenox at the time. Will monitor this area. (5) DVT (deep venous thrombosis): Code(s): I82.409 - Acute embolism and thrombosis of unspecified deep veins of unspecified lower extremity Status: Acute Assessment and Plan: Right leg DVT likely due to surgery -Transitioned to Xarelto -pulses and skin intact (6) Hip fracture: Code(s): S72.009A - Fracture of unspecified part of neck of unspecified femur, initial encounter for closed fracture Status: Acute Assessment and Plan: As above -must get out of bed with every meal (7) Hypertension: Code(s): I10 - Essential (primary) hypertension Status: Acute Assessment and Plan: last bp 164/77 before home medications -continue amlodipine, increase dose. (8) Alcoholism: Code(s): F10.20 - Alcohol dependence, uncomplicated Status: Acute Assessment and Plan: Patient states he drinks 4 large glasses a wine daily. He is unable to tell me how many bottles he drinks because he usually drinks from a box. He had a slight tremor on exam with movement. He had [facility] withdrawal at [facility] but this consisted of mostly tremors and no hallucinations according to the son. Will continue folic acid and thiamine (9) Pneumonia: Code(s): J18.9 - Pneumonia, unspecified organism Status: Acute Assessment and Plan: Possible pneumonia
[2021-01-22] MEDS: ACETAMINOPHEN 500 MG TABLET 1000 MG PO ×2 (13:45→21:58)
--- NOTE | 2021-01-22 13:57 | WPDNEUROPN ---
Progress Note: A&P Additional Plan post surgical late hallucination with negative ct scan for bleed explained to the family on vitamin suplements will try low dosage serequel Time Spent With Patient Time with patient: less than 15 minutes Subjective Date/time seen: icovdsmt38/26/21 13:57 Review of Systems Review of Systems: All systems reviewed & are unremarkable except as noted in HPI and below Exam Const: General: cooperative, healthy appearing, comfortable and no acute distress Nutritional Appearance: average body habitus Orientation/consciousness: oriented to person and oriented to place Limitations: behavioral limitations and physical limitations HENMT: Head: normal to inspection and normocephalic Ears: hearing grossly normal bilaterally General nose exam: Normal external nose present and No nasal discharge present Face and sinus: normal facial exam Eyes: General: appearance normal, both eyes and all related structures Visual Lazcano: normal visual lazcano by confrontation Alignment and Position: alignment normal Periorbital: periorbital findings normal Eyelids: eyelids normal Conjunctivae: conjunctivae normal Sclera: sclerae normal Pupils: Equal, round and reactive pupils present EOM: EOMs intact bilaterally Neck: Neck: full ROM Carotids: normal carotid upstroke Lymphatic: no lymphadenopathy noted Resp: Auscultation: clear to auscultation bilaterally Cardio: Jugular venous distension: no JVD Rate: regular rate Rhythm: regular rhythm Skin: General skin exam: no rashes or lesions noted Neuro: General: oriented to person and oriented to place Cranial nerves: Yes CN's II-XII intact bilaterally Cognition (Neuro): abnormal cognition Speech: normal speech Gait exam (Neuro): Unable to assess gait Motor exam (neuro): Pronator motor function not present, No tremor noted and Motor abnormalities not present Sensory Exam: Sensory deficit (Neuro) Deep tendon reflexes (DTR's): Right triceps reflex intensity grade: 1+, Left triceps reflex intensity grade: 1+, Rt Biceps (C5, C6): 1+, Left biceps reflex intensity grade: 1+, Right brachioradialis reflex intensity grade: 1+, Left brachioradialis reflex intensity grade: 1+, Right patellar reflex intensity grade: 1+, Left patellar reflex intensity grade: 1+, Right ankle reflex intensity grade: 1+ and Left ankle reflex intensity grade: 1+ Plantar Reflex Responses: downgoing: bilateral Coordination: [id number] test normal Psych: Appearance: well kempt Speech and movement: Normal speech and movement present Affect: normal affect Attitude: cooperative Thought process: Normal thought process present Thought content: Yes Normal thought content present Insight: Fair insight present (Psych) Judgement: Fair judgement present (Psych) Objective Data Vital Signs Vital Signs: Vital Signs - 24 hr 01/21/21 14:00 01/21/21 14:30 01/21/21 22:00 Temperature 36.2 C L 36.9 C Pulse Rate 92 87 Respiratory Rate 18 14 Blood Pressure 178/74 H 148/78 H 167/78 H Pulse Oximetry 98 98 01/22/21 06:00 Temperature 37.2 C Pulse Rate 74 Respiratory Rate 12 Blood Pressure 164/77 H Pulse Oximetry 98 Intake/Output Intake/Output: Intake & Output 01/19/21 01/20/21 01/21/21 01/22/21 23:59 23:59 23:59 23:59 Intake Total 4110 2000 3900 1910 Output Total 036 441 6437 2300 Balance 3285 1250 850 -390 Meds/Results Medications: Active Medications Generic Name Dose Route Start Last Admin Trade Name Freq PRN Reason Stop Dose Admin Acetaminophen 1,000 mg 01/22/21 12:06 01/22/21 13:45 Acetaminophen 500 Mg Tablet PO 1,000 mg Q6H PRN Administration pain Amlodipine Besylate 10 mg 01/23/21 09:00 Amlodipine Besylate 5 Mg Tablet PO DAILY KYLE Dextrose 12.5 gm 01/19/21 04:56 Dextrose 50% 25 Gm/50 Ml Syringe IV PUSH PRN PRN Hypoglycemia Protocol Folic Acid 1 mg 01/20/21 09:00 01/22/21 09:36 Folic Acid 1 Mg Tablet PO 1 mg RASHEEDA
[2021-01-22 15:47] VITALS: BP 155/84; PULSE 78; RESP 18; TEMP 37.2; O2SAT 98
[2021-01-22 16:44] LABS: Glucose Point of Care 89 mg/dl (65-105)
[2021-01-22] MEDS: QUEtiapine FUMARATE 12.5 MG TABLET PO (18:05)
[2021-01-22 18:44] LABS: Vancomycin Trough 21.3 ug/mL (10.0-20.0)
[2021-01-22] MEDS: MELATONIN 3 MG TABLET PO (21:59)
[2021-01-22] MEDS: TAMSULOSIN HCL 0.4 MG CAPSULE PO (21:59)
[2021-01-22 22:00] VITALS: BP 165/80; PULSE 86; RESP 16; TEMP 36.3; O2SAT 96
[2021-01-22 23:11] VITALS: O2SAT 96
[2021-01-23 01:20] LABS: Glucose Point of Care 112 mg/dl (65-105)
[2021-01-23 06:00] VITALS: BP 181/93; PULSE 74; RESP 20; TEMP 35.8; O2SAT 99
[2021-01-23 06:16] LABS: Hematocrit 29.4 % (42.0-52.0); Hemoglobin 9.1 g/dL (14.0-18.0); Mean Platelet Volume 9.4 fl (7.4-10.4); Platelet Count Result 354 k/mm3 (150-375); Red Blood Count 3.03 M/mm3 (4.6-6.20); Red Cell Distribution Width 15.8 % (11.5-14.5); White Blood Count 6.5 K/mm3 (4.5-10.0)
[2021-01-23 06:25] LABS: Anion Gap 4 mmol/L (8-16); Blood Urea Nitrogen 7 mg/dL (9-20); Calcium 7.9 mg/dL (8.4-10.2); Carbon Dioxide 28 mmol/L (22-30); Chloride 107 mmol/L (98-107); Estimated CRCL calculation 65 ml/min; Estimated Glomerular Filt Rate 60; Glucose 110 mg/dL (65-110); Potassium 3.6 mmol/L (3.4-5.0); Sodium 139 mmol/L (137-145)
[2021-01-23] MEDS: ACETAMINOPHEN 500 MG TABLET 1000 MG PO ×2 (07:00→12:57)
[2021-01-23] MEDS: amLODIPine BESYLATE 5 MG TABLET 10 MG PO (08:13)
[2021-01-23] MEDS: hydrALAZINE HCL 20 MG/ML VIAL 10 MG IV PUSH (08:13)
[2021-01-23] MEDS: RIVAROXABAN 15 MG TABLET PO ×2 (08:13→17:36)
[2021-01-23] MEDS: THIAMINE HCL 100 MG TABLET PO (08:13)
[2021-01-23] MEDS: FOLIC ACID 1 MG TABLET PO (08:13)
[2021-01-23 08:15] LABS: Glucose Point of Care 117 mg/dl (65-105)
--- NOTE | 2021-01-23 08:46 | PM.IMPN ---
Progress Note: A&P Assessment and Plan (1) Acute encephalopathy: Code(s): G93.40 - Encephalopathy, unspecified Status: Acute Assessment and Plan: Improving and had a little confusion this morning but no hallucinations overnight or today so far. Will still try and get a brain MRI. All narcotics and muscle relaxers have been stopped. Initially though to be due to infection or abx but pt has clinical improvement in this but still had hallucinations. No other medical reason for this. It seems to be happening around 6pm every night except for last night when seroquel was started. He says he has no hx of this. Son states he is 'completely different'. Must include underlying psych component in the differential. Pt may have undiagnosed psych disorder that he unknowingly uses alcohol to treat. Today he is alert oriented x4 for me (unchanged). B12 and folate are normal. No signs of infection with the UA. Blood cultures have no growth to date. Chest abdomen pelvis CT shows possible pneumonia but I doubt this is the cause of his confusion. Medications reviewed. TSH and ammonia normal. CT of the brain x2 negative. No signs of meningitis on exam. May possibly need to contact psych but now he is doing better, will hold off. Seroquel has been started by neurology and seems to be helping. If he does well today and overnight he will be discharged back to rehab tomorrow. (2) S/P ORIF (open reduction internal fixation) fracture: Code(s): Z98.890 - Other specified postprocedural states; Z87.81 - Personal history of (healed) traumatic fracture Status: Acute Assessment and Plan: Continue PT and OT with weight-bearing status -patient history of a fall and [facility] -incision sites clean and dry -obtain records from [facility] (still pending) (3) Postoperative anemia due to acute blood loss: Code(s): D62 - Acute posthemorrhagic anemia Status: Acute Assessment and Plan: Hemoglobin stable, 9.1 -he has a subacute hematoma around the fracture anterior to the pubic bone and lateral to the right iliac crest. -will monitor his hemoglobin (4) Urinary retention: Code(s): R33.9 - Retention of urine, unspecified Status: Acute Assessment and Plan: Continue catheterization -follow-up with urology for voiding trial (pt does not want to do the voiding trial now until he sees a urologist) -continue Flomax -pt pulled at his cath 01/20 and it dislodged. It was advanced to the correct position and then had almost 1000mls of UOP. There have been instances of lauri blood from the meatus 01/21 but no new reports. Suspect due to trauma but pt doesn't have much pain. Probably worsened due to lovenox at the time. No further issues (5) DVT (deep venous thrombosis): Code(s): I82.409 - Acute embolism and thrombosis of unspecified deep veins of unspecified lower extremity Status: Acute Assessment and Plan: Right leg DVT likely due to surgery -Transitioned to Xarelto -pulses and skin intact (6) Hip fracture: Code(s): S72.009A - Fracture of unspecified part of neck of unspecified femur, initial encounter for closed fracture Status: Acute Assessment and Plan: As above -must get out of bed with every meal -continue PT and OT (7) Hypertension: Code(s): I10 - Essential (primary) hypertension Status: Acute Assessment and Plan: last bp 181/93 before home medications -continue amlodipine, (dose increased). -hydralazine added (8) Alcoholism: Code(s): F10.20 - Alcohol dependence, uncomplicated Status: Acute Assessment and Plan: Patient states he drinks 4 large glasses a wine daily. He is unable to tell me how many bottles he drinks because he usually drinks from a box. He had a slight tremor on exam with movement. He had alcohol withdrawal at [facility] but this consisted of mostly tremors and n
[2021-01-23] MEDS: SACCHAROMYCES BOULARDII 250 MG CAPSULE PO ×3 (09:26→17:36)
[2021-01-23 11:45] LABS: Glucose Point of Care 115 mg/dl (65-105)
[2021-01-23 13:55] LABS: Vancomycin Trough 27.9 ug/mL (10.0-20.0)
[2021-01-23 14:00] VITALS: BP 158/82; PULSE 75; RESP 18; TEMP 36.3; O2SAT 100
--- NOTE | 2021-01-23 15:02 | WPDCNPSYCH ---
HPI Data of Consult Date/Time: 01/23/21 15:02 Requesting Physician: Anahi Gore PA-C Primary Care Provider: Luis Judge, Consult Narrative Narrative: Diagnosis: Delirium with transient Psychosis, possibly due to pneumonia, opiates in context of ORIF of right hip fracture, anemia, large DVT, family h/o DVT, resolved spontaneously with reduction in opiates muscle relaxers, resolving anemia, treatment of pneumonia, and treatment of deep vein thrombosis Alcohol use disorder Plan: Discontinue Seroquel (quetiapine) due to no longer be needed Recommend daily mini-mental status exam is to document resolved delirium. Care coordination to document outpatient alcohol rehab Reason for consultation: Patient is a 65-year-old gentleman whose consultation is for new onset hallucinations and confusion History of present illness: The patient, the patient's physician volunteer services assistant, the patient's nurse, and the patient's chart served as historians. Patient is judged to be an excellent historian. Patient fell and broke his right hip approximately 3 weeks prior to admission. At [facility] he underwent open reduction internal fixation of the right hip. Patient also has an alcohol use disorder. As [facility] he had minimal withdrawal syndrome. He was discharged to the [place] rehab service where he had some mental status changes that included hallucinations and confusion. The patient thought he had a pen in his right hand that would manage when he would try to write with it. He was trying to operate the television remote but as he would begin to use the remote it would than age in his hand. When he arrived at [facility] he was treated with antibiotics for presumed pneumonia based upon radiographic findings. In his confusion the patient pulled out his Kirby catheter. Neurology was consulted and was started on Seroquel (quetiapine) 12.5mg p.o. q.h.s. with only 1 dose having been given. He is no longer had any hallucinations. The patient was noted to have a past hemoglobin of 7.8. He was also getting oxycodone and Flexeril for pain management and subsequently has been discontinued. Nursing report: The patient has had no hallucinations today or yesterday. The patient's nurse reported that he had some confusion last night. The nurse reports that his appetite is good. His sleep is good. His vital signs are consistent with hypertension. He has demonstrated good impulse control. He has been taking his medications and has been no nursing management problem. Quality: The patient denies any auditory or visual hallucinations or paranoia today or yesterday. He states that never before in his life as he ever had any symptoms of psychosis. He states that following his fall he had a tremendous amount of pain and was given a lot of medications. Since surgery his pain is much better and he is on much less medications. The patient requests that no psychiatric medications be used because he is feeling improved. Except as mentioned above, the patient denies any spontaneously reported emotional or psychological symptoms. Associated symptoms: When prompted by the interviewer's questioning the patient denies depressed or anxious mood on most days. His sleep is generally normal prior to his injury. His weight has been constant. He denies symptoms of worthlessness he denies anhedonia. He denies a change in irritability he denies a change in his activity level. In his concentration is good except for the few days following his mental status changes. Suicide evaluation: The patient denies recent or remote history of suicidal ideation or attempt. He does own a gun. No family member has completed or attempted suicide. Past psychiatric history: None Past medical history: Acute encephalopathy, apparently resolved at time of interview Presumptive pneumonia based upon chest x-ray findings and mental status
[2021-01-23] MEDS: HYDROcodone/acetaminophen (*CRX) 5-325 MG TABLET 1 TAB PO (15:10)
[2021-01-23 16:37] LABS: Glucose Point of Care 104 mg/dl (65-105)
[2021-01-23] MEDS: DOXYCYCLINE HYCLATE 100 MG TABLET PO (20:29)
[2021-01-23] MEDS: TAMSULOSIN HCL 0.4 MG CAPSULE PO (20:29)
[2021-01-23] MEDS: CEFDINIR 300 MG CAPSULE PO (20:29)
[2021-01-23] MEDS: MELATONIN 3 MG TABLET PO (20:31)
[2021-01-23 22:00] VITALS: BP 158/77; PULSE 86; RESP 18; TEMP 36.5; O2SAT 99
[2021-01-23 22:08] LABS: Glucose Point of Care 113 mg/dl (65-105)
[2021-01-23 23:30] VITALS: O2SAT 98
[2021-01-24] MEDS: HYDROcodone/acetaminophen (*CRX) 5-325 MG TABLET 1 TAB PO ×3 (00:30→14:47)
[2021-01-24 06:00] VITALS: BP 186/82; PULSE 87; RESP 18; TEMP 36.9; O2SAT 100
[2021-01-24] MEDS: hydrALAZINE HCL 20 MG/ML VIAL 10 MG IV PUSH ×2 (06:48→10:40)
[2021-01-24 08:24] LABS: Glucose Point of Care 97 mg/dl (65-105)
[2021-01-24] MEDS: THIAMINE HCL 100 MG TABLET PO (09:34)
[2021-01-24] MEDS: DOXYCYCLINE HYCLATE 100 MG TABLET PO (09:34)
[2021-01-24] MEDS: SACCHAROMYCES BOULARDII 250 MG CAPSULE PO ×2 (09:34→12:48)
[2021-01-24] MEDS: CEFDINIR 300 MG CAPSULE PO (09:34)
[2021-01-24] MEDS: amLODIPine BESYLATE 5 MG TABLET 10 MG PO (09:34)
[2021-01-24] MEDS: FOLIC ACID 1 MG TABLET PO (09:35)
[2021-01-24] MEDS: RIVAROXABAN 15 MG TABLET PO ×2 (09:35→16:58)
[2021-01-24 10:23] VITALS: BP 181/81
--- NOTE | 2021-01-24 10:35 | PM.DS ---
DS: Admitting Diagnosis Discharge Date 01/21/21 Admitting Diagnosis Hallucinations DS: Discharge Diagnosis Discharge Diagnosis (1) Acute encephalopathy: Code(s): G93.40 - Encephalopathy, unspecified Status: Acute Assessment and Plan: Resoled, with no hallucinations in the last few days. -multifactorial due to narcotics, Flexeril, hx of etoh dependence and PNA. Uncertain psychology component -B12 and folate are normal. No signs of infection with the UA. Blood cultures negative. -Chest abdomen pelvis CT shows possible pneumonia. Medications reviewed. TSH and ammonia normal. -CT of the brain x2 negative. No signs of meningitis on exam -Neurology and psychology consult during his stay. No additional treatment recommended. (2) S/P ORIF (open reduction internal fixation) fracture: Code(s): Z98.890 - Other specified postprocedural states; Z87.81 - Personal history of (healed) traumatic fracture Status: Acute Assessment and Plan: Continue PT and OT with weight-bearing status at acute rehab -patient history of a fall and had surgery at [facility] 01/08/21 -incision sites clean and dry (3) Postoperative anemia due to acute blood loss: Code(s): D62 - Acute posthemorrhagic anemia Status: Acute Assessment and Plan: Hemoglobin stable, 9.2 -he has a subacute hematoma around the fracture anterior to the pubic bone and lateral to the right iliac crest (4) Urinary retention: Code(s): R33.9 - Retention of urine, unspecified Status: Acute Assessment and Plan: Continue catheterization -follow-up with urology for voiding trial (pt does not want to do the voiding trial now until he sees a urologist) -continue Flomax -pt pulled at his cath 01/20 and it dislodged. It was advanced to the correct position and then had almost 1000mls of UOP. He had some blood at that time but no further blood (5) DVT (deep venous thrombosis): Code(s): I82.409 - Acute embolism and thrombosis of unspecified deep veins of unspecified lower extremity Status: Acute Assessment and Plan: Right leg DVT likely due to surgery -Transitioned to Xarelto -pulses and skin intact (6) Hip fracture: Code(s): S72.009A - Fracture of unspecified part of neck of unspecified femur, initial encounter for closed fracture Status: Acute Assessment and Plan: As above -continue PT and OT (7) Hypertension: Code(s): I10 - Essential (primary) hypertension Status: Acute Assessment and Plan: last bp 152/66 -continue amlodipine (dose increased) and lisinopril added -He has been running high so he may need to be adjusted further (8) Alcoholism: Code(s): F10.20 - Alcohol dependence, uncomplicated Status: Acute Assessment and Plan: Patient states he drinks 4 large glasses a wine daily. He is unable to tell me how many bottles he drinks because he usually drinks from a box. He had a slight tremor on exam with movement. He had alcohol withdrawal at [facility] but this consisted of mostly tremors and no hallucinations according to the son. Will continue folic acid and thiamine (9) Pneumonia: Code(s): J18.9 - Pneumonia, unspecified organism Status: Acute Assessment and Plan: Possible pneumonia on the chest CT -Pt received zosyn and vancomycin while hospitalized and discharged on cefdinir and doxycycline -COVID-19 negative DS: Summary Hospital Course Hospital Course: Date of service 01/24/2021 Patient is a 65-year-old male with a past medical history of hypertension and alcohol abuse with a recent right hip fracture with [facility] fixation at [facility] who was in acute rehab who was transferred to [facility] for hallucinations and confusion. Vitals in the ER were stable. Initial white blood cell count 7.7, hemoglobin 8.7, hematocrit 28.2, platelets 415. BMP normal. Lactic acid 0.
[2021-01-24] MEDS: FUROSEMIDE INJ 40 MG/4 ML VIAL 20 MG IV PUSH (10:40)
[2021-01-24 11:38] VITALS: BP 152/66
[2021-01-24 11:51] LABS: Glucose Point of Care 126 mg/dl (65-105)
[2021-01-24 13:29] LABS: EDCOVIDSCREEN Negative (Negative)
[2021-01-24 14:00] VITALS: BP 170/72; PULSE 83; RESP 19; TEMP 36.2; O2SAT 96
== END 2021-01-24 18:10 | DRG 194 ==
LOC: ANHED 01-19 01:56 → ANH3MEDSUR 01-19 02:43
PROVIDERS: Physician Assistant; Admitting Provider Internal Medicine; Emergency Provider Emergency Medicine; PCP Family Medicine; Visit Provider Internal Medicine
DX: J18.9 Pneumonia, unspecified organism (principal); I82.411 Acute embolism and thrombosis of right femoral vein; G93.40 Encephalopathy, unspecified; D62 Acute posthemorrhagic anemia; R44.3 Hallucinations, unspecified; Y95 Nosocomial condition; Z20.822 Contact with and (suspected) exposure to COVID-19; I10 Essential (primary) hypertension; R74.01 Elevation of levels of liver transaminase levels; F10.20 Alcohol dependence, uncomplicated; R33.9 Retention of urine, unspecified; E11.9 Type 2 diabetes mellitus without complications; S32.401D Unspecified fracture of right acetabulum, subsequent encounter for fracture with routine healing; W19.XXXD Unspecified fall, subsequent encounter; Z87.891 Personal history of nicotine dependence; Z98.890 Other specified postprocedural states; Z79.899 Other long term (current) drug therapy
CPT/HCPCS: 36415; 36600; 70450; 71045; 71046; 71250; 73502; 74176; 80048; 80053; 80076; 80202; 80307; 81001; 82140; 82375; 82550; 82607; 82746; 82805; 82948; 83036; 83050; 83605; 84145; 84443; 84484; 85014; 85018; 85025; 85027; 85610; 85730; 86140; 86850; 86900; 86901; 87040; 87426; 93005; 93971; 96361; 96365; 96366; 96368; 96372; 97110; 97116; 97162; 97166; 97530; 97535; 97542; 99285; A9270; C9803; G0378; J0360; J0692; J1650; J1940; J2543; J3370; J7030; U0003; U0005

== ENCOUNTER 2021-02-01 14:20 | Emergency (ER) | payer MEDICARE, SELFPAY ==
[2021-02-01 14:34] VITALS: BP 167/89; PULSE 92; RESP 16; TEMP 36.7; O2SAT 100
--- NOTE | 2021-02-01 18:12 | PC.NURSE ---
Pt tired of waiting - states he needs his medications for pain and blood thinner. here to take him back to rehab
--- NOTE | 2021-02-01 18:14 | PC.NURSE ---
removed IV from right hand - bleeding controlled
== END 2021-02-01 18:10 | disposition left against medical advice (07) ==
LOC: ANHED 18:21
DX: R31.9 Hematuria, unspecified (principal)
CPT/HCPCS: 99199

== ENCOUNTER 2021-02-04 20:06 | Inpatient (IN) | payer MEDICARE, SELFPAY ==
--- NOTE | ~2021-02-04 | US_ITS ---
EXAMINATION: US pelvic limited INDICATION: Assess bladder clots TECHNIQUE: Limited ultrasound of the urinary bladder is performed. COMPARISON: 02/05/2021 FINDINGS: The bladder is nearly completely decompressed by the Kirby catheter. No definite intralumin al hematoma is identified. IMPRESSION: 1. No definite hematoma identified, bladder nearly completely decompressed by Kirby catheter. Reviewed, dictated and finalized at location A. STANT PROFESSOR OF NURSING IMPRESSION: 1. No definite hematoma identified, bladder nearly completely decompressed by F oley catheter.
--- NOTE | ~2021-02-04 | US_ITS ---
EXAMINATION: US pelvic limited DATE: 02/05/2021 10:49 INDICATION: Gross hematuria. TECHNIQUE: Multiple grayscale and Doppler ultrasound images of the pelvis were obtained. COMPARISON: CT abdomen and pelvis 02/04/2021 FINDINGS: There is a Kirby catheter in the bladder. There is a small volume of hypoechoic material in the bladder. IMPRESSION: 1. Small volume of hypoechoic material in the bladder, consistent with hematoma. Reviewed, dictated and finalized at location A. BRIM AND CROWN LAMINATING OPERATOR IMPRESSION: 1. Small volume of hypoechoic material in the bladder, consistent with hematoma .
--- NOTE | ~2021-02-04 | US_ITS ---
EXAMINATION: US venous doppler [facility] DATE: 02/05/2021 10:49 INDICATION: Deep vein thrombosis. TECHNIQUE: Grayscale ultrasound images without and with compression and Doppler ultrasound images of the bilateral lower extremity veins were obtained. COMPARISON: Ultrasound 01/19/2021 FINDINGS: The visualized portions of right common femoral vein, profunda (deep) femoral vein, posterior tibial veins, and greater saphenous vein outflow are patent. There is thrombus in right femoral, popliteal, and peroneal veins. The visualized portions of left common femoral vein, profunda femoral vein, femoral vein, popliteal v ein, peroneal veins, posterior tibial veins, and greater saphenous vein outflow are patent. IMPRESSION: 1. Deep vein thrombosis involving right femoral, popliteal, and peroneal veins. Reviewed, dictated and finalized at location A. K ANALYST IMPRESSION: 1. Deep vein thrombosis involving right femoral, popliteal, and peroneal veins .
--- NOTE | ~2021-02-04 | CT_ITS ---
EXAMINATION: CT abdomen pelvis w con EXAM DATE: 02/04/2021 21:52 INDICATION: Low urine output. Abdominal pain, hematuria. TECHNIQUE: Spiral CT of the abdomen and pelvis was performed following intravenous injection of 100 m L Omnipaque 350. Axial, coronal and sagittal images of the abdomen and pelvis were reviewed. The do se-length product (DLP) for this examination was 809.58 mGy-cm. The exposure was tailored according to patient size (auto mA exposure control), and iterative reconstruction (ASIR) was used as additiona l dose reduction technique. Comparison is made to prior examination from 01/19/2021. FINDINGS: There is low intraluminal density in the left common femoral vein, suspicious for DVT (find ing indicated on axial image 189). Comminuted right acetabular, rami fractures with hardware in posit ion. Improvement in previously seen adjacent hematomas. There is hepatic steatosis with interval improvement. Small liver cyst. Spleen, adrenal glands, pancr eas are unremarkable. Gallbladder is unremarkable. No biliary obstruction. Portal and splenic vein s are patent. Kidneys enhance symmetrically. There is no hydronephrosis. Mild prostatomegaly. Th ere is Kirby catheter in the bladder. There is no retroperitoneal or pelvic lymphadenopathy. There is moderate scattered arteriosclerotic disease. The appendix is normal. There is moderate diffuse colonic diverticulosis. There is no adjacent infla mmatory change to suggest diverticulitis. Small duodenal diverticulum. There is expected amount of c olonic stool. No free intraperitoneal gas. The heart is normal in size. There are no pericardial or pleural effusions. Small amount of basilar postinfectious residua. IMPRESSION: 1. Suspicion of right common femoral DVT; follow-up lower extremity Doppler. 2. Subacute internally fixed right pelvic fractures. Improvement in adjacent hematomas. 3. Kirby catheter in position, no hydronephrosis. 4. Colonic diverticulosis. 5. Hepatic steatosis. Reviewed, dictated and finalized at location A. ICULUM FACILITATOR IMPRESSION: 1. Suspicion of right common femoral DVT; follow-up lower extremity Doppler. 2. Subacute internally fixed right pelvic fractures. Improvement in adjacent h ematomas. 3. Kirby catheter in position, no hydronephrosis. 4. Colonic diverticulosis. 5. Hepatic steatosis.
[2021-02-04 20:07] VITALS: BP 187/96; PULSE 97; RESP 14; TEMP 37.2; O2SAT 100
--- NOTE | 2021-02-04 20:28 | ED.GENADULT ---
HPI - General Adult General Chief complaint: Urogenital-Male Stated complaint: dysuria, hematuria Source: RN notes reviewed History of Present Illness HPI narrative: Patient presents emergency department from [facility] for urinary retention. Patient states that he had fallen and broken his hip and he gone to the rehab [facility] following that he states that with this hip fracture he been having difficulty urinating and has had a Kirby catheter in been having difficulty with the catheter clotting and this evening had no flow out of the catheter he was sent for further evaluation. Patient notes some tenderness in his lower abdomen he denies any other symptoms at this time. Related Data Home Medications Medication Instructions Recorded Confirmed Adults Multivitamin 1 tablet DAILY 01/19/21 01/24/21 Artificial Tears 1 drp TID PRN 01/19/21 01/24/21 Lidocaine Pain Relief 1 patch DAILY 01/19/21 01/24/21 Senna Plus (senna-docusate) 2 tablet HS 01/19/21 01/24/21 Tums 200 mg Q2H PRN 01/19/21 01/24/21 magnesium citrate 150 ml PRN PRN 01/19/21 01/24/21 magnesium hydroxide 30 ml PRN PRN 01/19/21 01/24/21 melatonin 3 mg HS PRN 01/19/21 01/24/21 ondansetron HCl 4 mg Q4-6H PRN 01/19/21 01/24/21 polyethylene glycol 17 g DAILY 01/19/21 01/24/21 tamsulosin 0.4 mg HS 01/19/21 01/24/21 thiamine HCl (vitamin B1) 100 mg DAILY 01/19/21 01/24/21 Allergies Allergy/AdvReac Type Severity Reaction Status Date / Time No Known Allergies Allergy Verified 02/04/21 20:12 Review of Systems Review of Systems: Gen.: Denies fevers or chills ENT: Denies congestion Respiratory: Denies shortness of breath or cough CV: Denies chest pain or palpitations GI: Reports lower abdominal pain no nausea vomiting see HPI Musculoskeletal: Denies back pain or muscle pain Neuro: Denies numbness, tingling, weakness or focal weakness Skin: Denies rash Except as documented, all other systems reviewed and negative PMFSH Past Medical History Medical History Acute encephalopathy Acute postoperative pain Alcoholism Constipation Hypertension Postoperative anemia due to acute blood loss Rhabdomyolysis Right acetabular fracture Transaminitis Urinary retention Family History Family History Mother Acute myocardial infarction History of blood clots Congestive heart failure Hypertension Sibling Hypertension Social History Social History Social History: patient lives with his and 13-year-old son. Patient lives in a 2 story home. Patient is able to live downstairs . Patient only has a half bath on the 1st level. 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 He also has a 40-year-old son that lives nearby. Smoking status: Former smoker Second hand tobacco smoke exposure: No Alcohol intake: former Alcohol use details: history of alcoholism Substance use: unknown Gender identity (if verbalized by the patient): Male Spiritual care concerns: No Exam Narrative: APPEARANCE: No acute distress, nontoxic, resting in bed EYES: EOMI HEENT: Normocephalic, atraumatic RESPIRATORY: No respiratory distress Clear to auscultation bilaterally with no rhonchi wheezing or rales. CARDIOVASCULAR: Regular rate and rhythm without murmurs rubs or gallops. ABDOMINAL: Soft, tender palpation suprapubic region with distention present no tenderness right upper quadrant left upper quadrant no rebound or guarding MUSCULOSKELETAl: Moves all extremities. NEURO: Awake and alert. Following commands, speech normal, no focal deficits SKIN:: Warm, dry. No rashes lesions or abrasions PSYCHIATRIC: Normal affect/mood, Course Course Emergency Course: Reviewed old records. Patient has a current DVT in his right lower extremity currently on Xarelto they have been trying to hold the patient's Xarelto intermittently
[2021-02-04 20:49] LABS: Basophils Percent Auto 0.6 % (0.2-1.2); Eosinophils Absolute Auto 0.2 K/mm3 (0-0.3); Eosinophils Percent Auto 3.6 % (0-4.4); Hematocrit 27.9 % (42.0-52.0); Hemoglobin 8.6 g/dL (14.0-18.0); Immature Granulocyte Absolute 0.01 K/mm3 (0.00-0.031); Immature Granulocyte Percent A 0.2 % (0-0.5); Lymphocytes Absolute Auto 1.07 K/mm3 (0.9-3.2); Lymphocytes Percent Auto 20.3 % (18.3-44.2); Mean Corpuscular HGB Conc 30.8 g/dl (32-36); Mean Corpuscular Hemoglobin 28.5 pg (26-34); Mean Corpuscular Volume 92.4 fl (80-100); Mean Platelet Volume 8.9 fl (7.4-10.4); Monocytes Absolute Auto 0.5 K/mm3 (0.1-0.6); Monocytes Percent Auto 9.5 % (2.6-8.5); Neutrophils Absolute Auto 3.5 K/mm3 (1.3-6.7); Neutrophils Percent Auto 65.8 % (45.5-73.1); Platelet Count Result 231 k/mm3 (150-375); Red Blood Count 3.02 M/mm3 (4.6-6.20); Red Cell Distribution Width 14.9 % (11.5-14.5); White Blood Count 5.3 K/mm3 (4.5-10.0)
[2021-02-04 20:59] LABS: Add Urine Microscopic? YES; Appearance Urine Cloudy (Clear); Bacteria Urine Trace /hpf; Bilirubin Urine Negative (Negative); Blood Urine 3+ (Negative); Color Urine Red (Yellow); Glucose Urine UA 1+ mg/dL (Negative); Ketones Urine Negative (Negative); Leukocyte Esterase Ur Negative LEU/UL (Negative); Mucus Urine Rare /lpf; Nitrate Urine Negative (Negative); Protein Urine 2+ mg/dL (Negative); RBC Urine >75 /hpf (0-2); Specific Grav Ur 1.011 (1.001-1.035); Urobilinogen Urine Negative mg/dL (<2.0)
[2021-02-04 21:00] LABS: Anion Gap 10 mmol/L (8-16); Blood Urea Nitrogen 11 mg/dL (9-20); Calcium 8.8 mg/dL (8.4-10.2); Carbon Dioxide 27 mmol/L (22-30); Chloride 104 mmol/L (98-107); Estimated Glomerular Filt Rate > 60; Glucose 202 mg/dL (65-110); Potassium 3.2 mmol/L (3.4-5.0); Sodium 141 mmol/L (137-145)
[2021-02-04 21:21] VITALS: BP 175/79; PULSE 87; RESP 14; O2SAT 100
[2021-02-04 22:55] VITALS: BP 187/96; PULSE 88; RESP 14; O2SAT 97
[2021-02-05] VITALS (8 sets, daily range): BP systolic 142–193; BP diastolic 68–88; PULSE 70–86; RESP 16–18; TEMP 36.7–37.1; O2SAT 99–100; BMI 28.5
--- NOTE | 2021-02-05 02:07 | ADMGEN ---
This patient, Truong Aranda, was admitted to [facility] Surg Room 312-01. Patient/family oriented to hospital policies and general routines including ID bracelet, bed and alarms, visiting hours, pain management, procedures, bathroom and other care routines, personal items, smoking policy, room service/diet, and visiting hours. Information on how to activate the Rapid Response Team has been discussed. Patient/Family are encouraged to report perceived risks to care and to ask questions if they do not understand what they are told or what they should do.
[2021-02-05] MEDS: SODIUM CHLORIDE 0.9% IV 1,000 ML 100 ML IV CONT ×2 (04:12→14:08)
[2021-02-05 07:48] LABS: Basophils Percent Auto 0.6 % (0.2-1.2); Eosinophils Absolute Auto 0.3 K/mm3 (0-0.3); Hematocrit 26.4 % (42.0-52.0); Hemoglobin 8.3 g/dL (14.0-18.0); Immature Granulocyte Absolute 0.02 K/mm3 (0.00-0.031); Immature Granulocyte Percent A 0.3 % (0-0.5); Lymphocytes Absolute Auto 1.77 K/mm3 (0.9-3.2); Lymphocytes Percent Auto 28.4 % (18.3-44.2); Mean Corpuscular HGB Conc 31.4 g/dl (32-36); Mean Corpuscular Hemoglobin 29.1 pg (26-34); Mean Corpuscular Volume 92.6 fl (80-100); Mean Platelet Volume 9.3 fl (7.4-10.4); Monocytes Absolute Auto 0.7 K/mm3 (0.1-0.6); Monocytes Percent Auto 11.4 % (2.6-8.5); Neutrophils Absolute Auto 3.4 K/mm3 (1.3-6.7); Neutrophils Percent Auto 54.3 % (45.5-73.1); Platelet Count Result 235 k/mm3 (150-375); Red Blood Count 2.85 M/mm3 (4.6-6.20); Red Cell Distribution Width 14.6 % (11.5-14.5); White Blood Count 6.2 K/mm3 (4.5-10.0)
[2021-02-05 07:58] LABS: Anion Gap 6 mmol/L (8-16); Blood Urea Nitrogen 8 mg/dL (9-20); Calcium 9.3 mg/dL (8.4-10.2); Carbon Dioxide 29 mmol/L (22-30); Chloride 104 mmol/L (98-107); Estimated CRCL calculation 72 ml/min; Estimated Glomerular Filt Rate > 60; Glucose 102 mg/dL (65-110); Potassium 3.6 mmol/L (3.4-5.0); Sodium 139 mmol/L (137-145)
[2021-02-05] MEDS: hydrALAZINE HCL 20 MG/ML VIAL 10 MG IV PUSH (08:43)
[2021-02-05] MEDS: amLODIPine BESYLATE 5 MG TABLET 10 MG PO (09:20)
[2021-02-05] MEDS: MULTIVITAMINS THERAPEUTIC TAB (*BKC) 1 TABLET PO (09:20)
[2021-02-05] MEDS: FOLIC ACID 1 MG TABLET PO (09:20)
[2021-02-05] MEDS: RIVAROXABAN 15 MG TABLET PO (09:20)
[2021-02-05] MEDS: THIAMINE HCL 100 MG TABLET PO (09:22)
[2021-02-05] MEDS: HYDROcodone/acetaminophen (*CRX) 5-325 MG TABLET 1 TAB PO ×3 (09:57→23:09)
--- NOTE | 2021-02-05 10:58 | PC.NURSE ---
Akanksha from urology called, to clarify diet orders and for update on pt. Awaiting call back. [phone]
--- NOTE | 2021-02-05 11:19 | WPDURCON ---
Assessment and Plan Assessment and plan (1) Hematuria: Code(s): R31.9 - Hematuria, unspecified Status: Acute Assessment and Plan: Gross hematuria is multifactorial between Xarelto, underlying BPH and traumatic mendoza insertion. Urine culture on 01/29/2021 was negative and he is afebrile. I will plan to irrigate his mendoza to remove the small amount of clot and continue high flow CBI until clear, then ok to wean CBI to off. This will be difficult d/t his ongoing need for Xarelto for his current DVT. I will also add Finasteride and Flomax. If gross hematuria and clots continue he may need a clot evac with bladder fulguration. We will watch him on CBI to see if he is able to clear. Keep NPO after midnight. Urology Consult Note HPI Date Seen: 02/05/21 Requesting Physician: Samaria Hernandez PA-C Primary Care Provider: Luis Judge, Consult Narrative Narrative: Truong Aranda is a 65 year old male who is admitted to [facility] d/t gross hematuria s/p a [facility] after a failed voiding trial. He was intially in [facility] hospital for a right acetabular fracture on 01/01/2021. He then underwent an acetabular repair on 01/08/2021. [facility] back to [facility]. During this period of time a right femoral DVT was discovered and he has been on Xarelto 15mg BID for several weeks with a plan to decrease it next week to 20mg QD. He had a mendoza placed during his initial stay at [facility] and was then transferred to Rehab with it because he was unable to use a urinal or ambulate to the restroom. It was more comfortable for him in the post operative period. They did a voiding trial on him in Rehab last Monday, which he didn't pass and a mendoza was then re-placed when the the hematuria started. He was to be discharged this past Monday home, but since hematuria has persisted and they are unable to manage irrigating his mendoza at rehab d/t insufficient irrigation supplies. He was then sent to [facility] for CBI last night d/t his catheter clotting off. His WBC is 6.2, creatinine is 1.[address] is urologically negative from yesterday. Urine remains bloody on high flow CBI, but his abdomen is soft and non tender. He denies previous BPH symptoms before having his hip surgery at home. All information was obtained from the pateint and Dr. Wu at [facility] who I spoke to this morning. His Renal US does show a small amount of clot present in the bladder, although the CBI is irrigating without difficulty. Review of Systems Respiratory: Respiratory: Reports no additional respiratory complaints Gastrointestinal: Gastrointestinal: Denies abdominal pain, Denies nausea and Denies vomiting Genitourinary: Genitourinary: Reports hematuria, Denies flank pain, Denies urinary hesitancy and Denies urinary urgency PMFSH Past Medical History Medical History Acute encephalopathy Acute postoperative pain Alcoholism Constipation Hypertension Postoperative anemia due to acute blood loss Rhabdomyolysis Right acetabular fracture Transaminitis Urinary retention Family History Family History Mother Acute myocardial infarction History of blood clots Congestive heart failure Hypertension Sibling Hypertension Social History Social History Social History: patient lives with his and 13-year-old son. Patient lives in a 2 story home. Patient is able to live downstairs . Patient only has a half bath on the 1st level. 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 He also has a 40-year-old son that lives nearby. Smoking status: Former smoker Second hand tobacco smoke exposure: No Alcohol intake: former Alcohol use details: history of alcoholism Substance use: never Gender
--- NOTE | 2021-02-05 11:45 | PM.IMHP ---
H&P: HPI History of Present Illness Date/Time: 02/05/21 11:45 Chief Complaint: Hematuria Narrative: Date of admission: 02/04/2021 Date of service: 02/05/2021 Truong Aranda is a 65-year-old male with a history of right acetabular fracture s/p ORIF 01/08/2021 at [facility], subsequently being rehabilitated at [facility], with course complicated by pneumonia, acute encephalopathy, urinary retention, and DVT, for which she has been started on Xarelto. The patient states this all started when he was admitted to [facility], he had a condom catheter placed and he stated this caused some scarring and bleeding at the head of the penis. Postoperatively, they put him on a Kirby catheter and he has had a Kirby catheter since the surgery. He states that 1 week ago, he had a voiding trial at [facility], which unfortunately he failed. At that time if Kirby catheter was re-attempted, but there was difficulty with placement and concern for trauma. He had hematuria ongoing for approximately 3 days. Because of this persistence, he was sent to the emergency department [facility], though he states that there was a very long wait and he decided to leave prior to being seen. He went back to [facility], and as per my discussion with the rehab physician, Dr. Carlos, he had some mild improvement with the hematuria. They were attempting to flush the Kirby frequently and Dr. Carl noted some improvement overall. However, yesterday he started to have large clots that call the Kirby catheter and he return to the ED. on presentation to the ED, his blood pressure was elevated at 170 5/79 with additional vital signs stable, hemoglobin 8.6, hematocrit 27.9, and CT abdomen/pelvis showed suspicion for right common femoral DVT and Kirby catheter in position without hydronephrosis. He is being admitted to the hospitalist service for observation. At the time of my evaluation, he is feeling well. His only complaint is that he is hungry, as he has been NPO for Urology evaluation. He denies any pain or issues with the Kirby catheter. He is being admitted for observation. Supervising physician for this history and physical is Dr. Michael Newberry. Case has been discussed with my supervising physician. Review of Systems Review of Systems: All systems reviewed with pertinent positives and negatives as per HPI. Additionally, patient endorses 7/10 right lateral hip pain. He has been ambulating independently at the rehab facility. He denies shortness of breath, cough, chest pain, palpitations. No nausea, vomiting, fever, chills, dizziness, lightheadedness. He denies calf pain or tenderness. No numbness or tingling of the extremities. He reports a good appetite. Denies any additional bleeding. [facility] Past Medical History Medical History (Updated 02/05/21 @ 11:58 by Samaria Hernandez PA-C) Acute encephalopathy Acute postoperative pain Alcoholism Constipation DVT (deep venous thrombosis) Hypertension Postoperative anemia due to acute blood loss Rhabdomyolysis Right acetabular fracture Urinary retention Surgical History Surgical History (Updated 02/05/21 @ 11:58 by Samaria Hernandez PA-C) S/P ORIF (open reduction internal fixation) fracture Family History Family History Mother Acute myocardial infarction History of blood clots Congestive heart failure Hypertension Sibling Hypertension Social History Social History (Updated 02/05/21 @ 12:01 by Samaria Hernandez PA-C) Social History: Mr. Aranda lives at home with his and his 13 year old son. He has presently been in acute rehab for several weeks. He was previously independent in his activities. 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 His PCP is Dr. Luis Judge. He designates his , Shanique, as his surrogate decision maker and he would like to be a DNR. Smoking packs per day: 1 Smoking cigarettes per day: 20.0 Years smoked
[2021-02-05] MEDS: FINASTERIDE 5 MG TABLET PO (12:35)
[2021-02-05] MEDS: TAMSULOSIN HCL 0.4 MG CAPSULE PO (12:35)
[2021-02-05] MEDS: WATER FOR IRRIGATION, STERILE 1,000 ML BOTTLE 1000 ML (12:35)
--- NOTE | 2021-02-05 14:36 | PC.NURSE ---
Provider Samaria PATEL informed that pt bp 172/84, and prn hydralizine isn't available to given until around 1630, provider requesting to recheck at 1530 and if still high give hydralazine at 1630. Provider plans on increasing amlodipine.
[2021-02-05 15:03] LABS: Hematocrit 25.9 % (42.0-52.0); Hemoglobin 8.1 g/dL (14.0-18.0)
--- NOTE | 2021-02-05 16:55 | PC.NURSE ---
Provider Samaria [facility] holding luis at this time.
[2021-02-05] MEDS: SENNA/DOCUSATE SODIUM TABLET 2 TAB PO (20:56)
[2021-02-05] MEDS: lisinopriL 20 MG TABLET PO (20:57)
[2021-02-05 21:05] LABS: Hematocrit 25.7 % (42.0-52.0)
[2021-02-05] MEDS: MELATONIN 3 MG TABLET PO (23:10)
[2021-02-06 05:31] VITALS: BP 141/79; PULSE 73; RESP 18; TEMP 36.6; O2SAT 99
[2021-02-06 06:57] LABS: Hematocrit 23.6 % (42.0-52.0); Hemoglobin 7.4 g/dL (14.0-18.0); Mean Corpuscular HGB Conc 31.4 g/dl (32-36); Mean Corpuscular Hemoglobin 28.7 pg (26-34); Mean Corpuscular Volume 91.5 fl (80-100); Mean Platelet Volume 8.9 fl (7.4-10.4); Platelet Count Result 211 k/mm3 (150-375); Red Blood Count 2.58 M/mm3 (4.6-6.20); Red Cell Distribution Width 14.6 % (11.5-14.5); White Blood Count 5.4 K/mm3 (4.5-10.0)
[2021-02-06 07:05] LABS: INR 1.4; Prothrombin Time 16.8 Seconds (11.1-14.7)
[2021-02-06 07:18] LABS: Anion Gap 10 mmol/L (8-16); Blood Urea Nitrogen 8 mg/dL (9-20); Calcium 8.4 mg/dL (8.4-10.2); Carbon Dioxide 23 mmol/L (22-30); Chloride 109 mmol/L (98-107); Estimated CRCL calculation 72 ml/min; Estimated Glomerular Filt Rate > 60; Glucose 110 mg/dL (65-110); Potassium 3.4 mmol/L (3.4-5.0); Sodium 142 mmol/L (137-145)
[2021-02-06 08:00] VITALS: PULSE 73; RESP 18; O2SAT 99
[2021-02-06] MEDS: MULTIVITAMINS THERAPEUTIC TAB (*BKC) 1 TABLET PO (09:08)
[2021-02-06] MEDS: ARTIFICIAL TEARS OPHTH SOLN 15 ML BOTTLE 1 DROP EACH EYE (09:08)
[2021-02-06] MEDS: FINASTERIDE 5 MG TABLET PO (09:08)
[2021-02-06] MEDS: amLODIPine BESYLATE 5 MG TABLET 10 MG PO (09:08)
[2021-02-06] MEDS: THIAMINE HCL 100 MG TABLET PO (09:08)
[2021-02-06] MEDS: FOLIC ACID 1 MG TABLET PO (09:09)
[2021-02-06] MEDS: TAMSULOSIN HCL 0.4 MG CAPSULE PO (09:09)
[2021-02-06] MEDS: HYDROcodone/acetaminophen (*CRX) 5-325 MG TABLET 1 TAB PO ×2 (09:12→18:11)
--- NOTE | 2021-02-06 11:19 | PM.IMPN ---
Progress Note: A&P Assessment and Plan (1) Hematuria: Code(s): R31.9 - Hematuria, unspecified Status: Acute Assessment and Plan: Presented with gross hematuria x3 days. Pelvis ultrasound shows small volume of hypoechoic material in the bladder consistent with hematoma. Etiology for this is likely related to traumatic Kirby insertion worsened by Xarelto use. Appreciate urology consultation Continue with CBI, urine is clear at this time Kirby was irrigated yesterday and many clots were cleared. Repeat pelvis ultrasound today showed no definite hematoma with the bladder nearly decompressed Urine culture from 01/29/21 negative, no evidence of infection. IV ceftriaxone discontinued Unfortunately, he does require continued anticoagulation due to his extensive DVT. Discussed with urology, will resume Xarelto today. Last dose was the morning of 02/05/2021 (2) DVT (deep venous thrombosis): Code(s): I82.409 - Acute embolism and thrombosis of unspecified deep veins of unspecified lower extremity Status: Acute Assessment and Plan: Discovered last hospitalization on 01/19/2021 involving right femoral, popliteal, and peroneal veins. Repeat venous Doppler performed today is unchanged. He was started on Xarelto 15 mg b.i.d. to be continued through 02/11/2021, then will transition to 20 mg daily Resume Xarelto as above (3) Right acetabular fracture: Code(s): S32.401A - Unspecified fracture of right acetabulum, initial encounter for closed fracture Status: Acute Assessment and Plan: S/p ORIF on 01/08/2021 at [facility]. He has received rehabilitation at [facility]. Discussed case with rehab physician, who notes that he is now independent and does not need to return to rehab upon discharge. Appreciate PT/OT Supportive care. Analgesics available as needed (4) Hypertension: Code(s): I10 - Essential (primary) hypertension Status: Acute Assessment and Plan: Blood pressure has been elevated above target. It is improved today. Last BP 141/79 Continue home amlodipine Continue lisinopril at increased dose 20 mg qHS Continue to monitor BP trends (5) Alcoholism: Code(s): F10.20 - Alcohol dependence, uncomplicated Status: Acute Assessment and Plan: Patient reports drinking 4 glasses of wine daily. He has not had any alcohol in approximately 1 month since his hospitalization. No concerns for alcohol withdrawals at this time. Of note, he did have hallucinations at his last admission in late December, may have been related to alcohol withdrawal symptoms. Continue thiamine and folic acid (6) Anemia: Code(s): D64.9 - Anemia, unspecified Status: Acute Assessment and Plan: Chronic anemia which appears acutely worsened secondary to hematuria. Hemoglobin 7.4 this morning. Repeat H&H this afternoon. No further hematuria therefore expect stabilization/improvement of hemoglobin Subjective Date/time seen: 02/06/21 11:19 Interval history: Date of service: 02/06/2021 Truong Aranda is a 65-year-old male with a history of right acetabular fracture s/p ORIF 01/08/2021 at [facility], subsequently being rehabilitated at [facility], with course complicated by pneumonia, acute encephalopathy, urinary retention, and DVT, for which she has been started on Xarelto. He is being seen in follow-up for hematuria. He is doing well today. He reports that his urine has been clear since last night. He has been NPO for today as an ultrasound was ordered, and he is very unhappy about this stating he is very hungry and wants to have something to eat as soon as possible. He has no pain or discomfort with the Kirby, no suprapubic tenderness, flank pain, or back pain. Denies nausea, vomiting, fever, chills, dizziness, lightheadedness, weakness. No shortness of breath, cough, chest pain. Endorses l
[2021-02-06 14:00] VITALS: BP 124/70; PULSE 84; RESP 16; TEMP 37.1; O2SAT 79
--- NOTE | 2021-02-06 14:19 | WPDUROPN2 ---
Progress Note: A&P Assessment and Plan (1) Hematuria: Code(s): R31.9 - Hematuria, unspecified Status: Acute Assessment and Plan: Resolved. Keep Kirby catheter. Can be discharged with Kirby catheter and urologic follow-up. Okay to restart her blood thinner Subjective Subjective Date/Time Seen: 02/06/21 14:19 CBI is off. Urine is clear Exam Narrative: Kirby catheter placed. Clear yellow urine Objective Data Vital Signs Vital Signs: Vital Signs - 24 hr 02/05/21 15:27 02/05/21 22:00 02/06/21 05:31 Temperature 98.5 F 97.8 F Pulse Rate 70 85 73 Respiratory Rate 18 18 Blood Pressure 150/68 H 142/70 H 141/79 H Pulse Oximetry 100 99 02/06/21 08:00 Temperature Pulse Rate 73 Respiratory Rate 18 Blood Pressure Pulse Oximetry 99 Intake/Output Intake/Output: Intake & Output 02/03/21 02/04/21 02/05/21 02/06/21 23:59 23:59 23:59 23:59 Intake Total 2000 4040 50 Output Total 9700 84588 8400 Balance -7700 -98223 -8350 Meds/Results Medications: Active Medications Generic Name Dose Route Start Last Admin Trade Name Freq PRN Reason Stop Dose Admin Hydrocodone Bitart/Acetaminophen 1 tab 02/05/21 04:40 02/06/21 09:12 Hydrocodone/Acetaminophen (*Crx) 5-325 Mg Tablet PO 1 tab Q6H PRN Administration Pain Rated 4-6 Amlodipine Besylate 10 mg 02/05/21 09:00 02/06/21 09:08 Amlodipine Besylate 5 Mg Tablet PO 10 mg DAILY KYLE Administration Artificial Tears 1 drop 02/05/21 04:40 02/06/21 09:08 Artificial Tears Ophth Soln 15 Ml Bottle EACH EYE 1 drop TID PRN Administration Dry Eyes Calcium Carbonate 200 mg 02/05/21 04:40 Calcium Carbonate (Tums) 500 Mg (200 Mg Elemental) PO Q2H PRN Indigestion Finasteride 5 mg 02/05/21 11:35 02/06/21 09:08 Finasteride 5 Mg Tablet PO 5 mg QAM KYLE Administration Folic Acid 1 mg 02/05/21 09:00 02/06/21 09:09 Folic Acid 1 Mg Tablet PO 1 mg DAILY KYLE Administration Hydralazine HCl 10 mg 02/05/21 04:40 02/05/21 08:43 Hydralazine Hcl 20 Mg/Ml Vial IV PUSH 10 mg Q8H PRN Administration Blood Pressure - High knu=676 Lisinopril 20 mg 02/05/21 21:00 02/05/21 20:57 Lisinopril 20 Mg Tablet PO 20 mg HS KYLE Administration Magnesium Citrate 150 ml 02/05/21 04:40 Magnesium Citrate 300 Ml Btl PO PRN PRN Constipation Magnesium Hydroxide 30 ml 02/05/21 04:40 Magnesium Hydroxide Susp 30 Ml Udc PO PRN PRN Constipation Melatonin 3 mg 02/05/21 04:40 02/05/21 23:10 Melatonin 3 Mg Tablet PO 3 mg HS PRN Administration Insomnia Miscellaneous Information 0 each 02/05/21 00:01 Rivaroxaban Dosed For 6 More Days - This Often Changes To 20 Mg Every Evening After - Plea XX 03/07/21 00:00 CLARIFY [facility] Miscellaneous Information 0 each 02/05/21 00:01 Lidocaine Patch - Can We Use The Rx 5% Patch? What Is The Application Site? XX 03/07/21 00:00 CLARIFY [facility] Multivitamins Therapeutic 1 tablet 02/05/21 09:00 02/06/21 09:08 Multivitamins Therapeutic Tab (*Bkc) PO 03/07/21 08:59 1 tablet DAILY [facility] Administration Non-Formulary Medication 1 patch 02/05/21 09:00 Lidocaine Pain Relief TOPICAL 03/07/21 08:59 DAILY [facility] Polyethylene Glycol 17 gm 02/05/21 09:00 02/06/21 09:09 Polyethylene Glycol 3350 17 Gm Powd.Pack PO 03/07/21 08:59 Not Given DAILY KYLE Rivaroxaban 15 mg 02/05/21 09:00 02/05/21 09:20 Rivaroxaban 15 Mg Tablet PO 02/11/21 17:01 15 mg BID KYLE Administration Senna/Docusate Sodium 2 tab 02/05/21 21:00 02/05/21 20:56 Senna/Docusate Sodium Tablet PO 03/07/21 20:59 2 tab HS KYLE Administration Tamsulosin HCl 0.4 mg 02/05/21 11:35 02/06/21 09:09 Tamsulosin Hcl 0.4 Mg Capsule PO 0.4 mg QAM KYLE Administration Thiamine HCl 100 mg 02/05/21 09:00 02/06/21 09:08 Thiamine Hcl 100 Mg Tablet PO 03/07/21 08:59 100 mg DAILY KYLE Administration
[2021-02-06 14:29] LABS: Hematocrit 25.2 % (42.0-52.0); Hemoglobin 7.9 g/dL (14.0-18.0)
[2021-02-06] MEDS: RIVAROXABAN 15 MG TABLET PO (18:42)
[2021-02-06] MEDS: SENNA/DOCUSATE SODIUM TABLET 2 TAB PO (20:39)
[2021-02-06] MEDS: lisinopriL 20 MG TABLET PO (20:40)
[2021-02-06 21:43] LABS: Hemoglobin 7.8 g/dL (14.0-18.0)
[2021-02-06 22:00] VITALS: BP 141/72; PULSE 80; RESP 16; TEMP 37.2; O2SAT 99
[2021-02-07] MEDS: MELATONIN 3 MG TABLET PO (02:04)
[2021-02-07] MEDS: HYDROcodone/acetaminophen (*CRX) 5-325 MG TABLET 1 TAB PO ×2 (02:04→08:41)
[2021-02-07 06:00] VITALS: BP 153/76; PULSE 72; RESP 20; TEMP 36.6; O2SAT 98
[2021-02-07 07:33] LABS: Hematocrit 25.1 % (42.0-52.0); Hemoglobin 7.7 g/dL (14.0-18.0)
[2021-02-07 07:49] LABS: Anion Gap 7 mmol/L (8-16); Blood Urea Nitrogen 9 mg/dL (9-20); Calcium 8.7 mg/dL (8.4-10.2); Carbon Dioxide 26 mmol/L (22-30); Chloride 105 mmol/L (98-107); Estimated CRCL calculation 72 ml/min; Estimated Glomerular Filt Rate > 60; Glucose 103 mg/dL (65-110); Potassium 3.2 mmol/L (3.4-5.0); Sodium 138 mmol/L (137-145)
[2021-02-07 08:30] VITALS: PULSE 72; RESP 20; O2SAT 98
[2021-02-07] MEDS: TAMSULOSIN HCL 0.4 MG CAPSULE PO (08:39)
[2021-02-07] MEDS: MULTIVITAMINS THERAPEUTIC TAB (*BKC) 1 TABLET PO (08:39)
[2021-02-07] MEDS: THIAMINE HCL 100 MG TABLET PO (08:39)
[2021-02-07] MEDS: amLODIPine BESYLATE 5 MG TABLET 10 MG PO (08:39)
[2021-02-07] MEDS: RIVAROXABAN 15 MG TABLET PO (08:39)
[2021-02-07] MEDS: FOLIC ACID 1 MG TABLET PO (08:39)
[2021-02-07] MEDS: FINASTERIDE 5 MG TABLET PO (08:39)
--- NOTE | 2021-02-07 11:02 | PM.DS ---
DS: Admitting Diagnosis Discharge Date 02/07/2021 Admitting Diagnosis Hematuria DS: Discharge Diagnosis Discharge Diagnosis (1) Hematuria: Code(s): R31.9 - Hematuria, unspecified Status: Acute Assessment and Plan: Presented with gross hematuria x3 days. Pelvis ultrasound showed small volume of hypoechoic material in the bladder consistent with hematoma. Etiology for this is likely related to traumatic Kirby insertion worsened by Xarelto use. He was seen in consultation by Urology. He had continuous bladder irrigation and his Kirby was irrigated by Urology and many clots were cleared. Hematuria resolved. Repeat pelvic ultrasound 02/06/2021 showed no definite hematoma with the bladder nearly decompressed. His urine was clear off of CBI. His Xarelto was resumed and his urine remained cleared with continuation of this. He will continue with his Kirby catheter as an outpatient and will follow-up with urology in their office. Urine culture from [id number]-, no evidence of infection. (2) DVT (deep venous thrombosis): Code(s): I82.409 - Acute embolism and thrombosis of unspecified deep veins of unspecified lower extremity Status: Acute Assessment and Plan: Discovered last hospitalization on 01/19/2021 involving right femoral, popliteal, and peroneal veins. Repeat venous Doppler performed this admission was unchanged. He was started on Xarelto 15 mg b.i.d. to be continued through 02/11/2021, then will transition to 20 mg daily. Xarelto was held for 1 dose due to hematuria but was resumed when hematuria resolved. No subsequent hematuria. Discussed signs and symptoms to monitor for while on anticoagulation and patient understands. (3) Right acetabular fracture: Code(s): S32.401A - Unspecified fracture of right acetabulum, initial encounter for closed fracture Status: Acute Assessment and Plan: S/p ORIF on 01/08/2021 at [facility]. He has received rehabilitation at [facility]. Discussed case with rehab physician, Dr. Carlos, who notes that he is now independent and was scheduled to be discharged from rehab a few days ago, but this was delayed due to hematuria. He was discharged home with home health. He already has his equipment including walker and wheelchair. (4) Hypertension: Code(s): I10 - Essential (primary) hypertension Status: Acute Assessment and Plan: Blood pressure was a 1st elevated above target. Reviewing prior blood pressures, it seems that this has been a persistent issue. Home amlodipine was continued. Lisinopril increased from 10 mg to 20 mg qHS and he had improvement in blood pressure. Instructed to monitor his BP at home and record for review by PCP. (5) Alcoholism: Code(s): F10.20 - Alcohol dependence, uncomplicated Status: Acute Assessment and Plan: Patient reports drinking 4 glasses of wine daily. He has not had any alcohol in approximately 1 month since his hospitalization. No concerns for alcohol withdrawals at this time. Of note, he did have hallucinations at his last admission in late December, may have been related to alcohol withdrawal symptoms. Continue thiamine and folic acid. Discussed alcohol cessation/reduction. (6) Anemia: Code(s): D64.9 - Anemia, unspecified Status: Acute Assessment and Plan: Patient has chronic anemia which was worsened due to hematuria. Hemoglobin declined to 7.4, but then slowly improved as he was not having any further bleeding. Vital signs were stable and there was no evidence of ongoing bleeding. He will repeat H&H in 1 week to ensure remaining stable, this can be completed by home health. DS: Summary Hospital Course Hospital Course: Date of admission: 02/04/2021 Date of discharge: 02/07/2021 Truong Aranda is a 65-year-old male with a history of right acetabular fracture s/p ORIF 01/08/2021 at [facility]
--- NOTE | 2021-02-07 11:06 | WPDUROPN2 ---
Progress Note: A&P Assessment and Plan (1) Hematuria: Code(s): R31.9 - Hematuria, unspecified Status: Acute Assessment and Plan: Resolved (2) Urinary retention: Code(s): R33.9 - Retention of urine, unspecified Status: Acute Assessment and Plan: Home with Kirby catheter, BPH medications, urologic follow-up Subjective Subjective Date/Time Seen: 02/07/21 11:06 Urine clear. No complaints. Slated for discharge home today Exam Narrative: Kirby draining clear yellow urine. Phallus normal. Some dried blood around is Objective Data Vital Signs Vital Signs: Vital Signs - 24 hr 02/06/21 14:00 02/06/21 22:00 02/07/21 06:00 Temperature 98.8 F 99 F 98 F Pulse Rate 84 80 72 Respiratory Rate 16 16 20 Blood Pressure 124/70 141/72 H 153/76 H Pulse Oximetry 79 L 99 98 Intake/Output Intake/Output: Intake & Output 02/04/21 02/05/21 02/06/21 02/07/21 23:59 23:59 23:59 23:59 Intake Total 1999 4040 862 360 Output Total 9700 67535 20171 6250 [facility] -7700 -[id number] -[id number] -5890 Meds/Results Medications: Active Medications Generic Name Dose Route Start Last Admin Trade Name Freq PRN Reason Stop Dose Admin Hydrocodone Bitart/Acetaminophen 1 tab 02/05/21 04:40 02/07/21 08:41 Hydrocodone/Acetaminophen (*Crx) 5-325 Mg Tablet PO 1 tab Q6H PRN Administration Pain Rated 4-6 Amlodipine Besylate 10 mg 02/05/21 09:00 02/07/21 08:39 Amlodipine Besylate 5 Mg Tablet PO 10 mg DAILY KYLE Administration Artificial Tears 1 drop 02/05/21 04:40 02/06/21 09:08 Artificial Tears Ophth Soln 15 Ml Bottle EACH EYE 1 drop TID PRN Administration Dry Eyes Calcium Carbonate 200 mg 02/05/21 04:40 Calcium Carbonate (Tums) 500 Mg (200 Mg Elemental) PO Q2H PRN Indigestion Finasteride 5 mg 02/05/21 11:35 02/07/21 08:39 Finasteride 5 Mg Tablet PO 5 mg QAM KYLE Administration Folic Acid 1 mg 02/05/21 09:00 02/07/21 08:39 Folic Acid 1 Mg Tablet PO 1 mg DAILY KYLE Administration Hydralazine HCl 10 mg 02/05/21 04:40 02/05/21 08:43 Hydralazine Hcl 20 Mg/Ml Vial IV PUSH 10 mg Q8H PRN Administration Blood Pressure - High vum=356 Lisinopril 20 mg 02/05/21 21:00 02/06/21 20:40 Lisinopril 20 Mg Tablet PO 20 mg HS KYLE Administration Magnesium Citrate 150 ml 02/05/21 04:40 Magnesium Citrate 300 Ml Btl PO PRN PRN Constipation Magnesium Hydroxide 30 ml 02/05/21 04:40 Magnesium Hydroxide Susp 30 Ml Udc PO PRN PRN Constipation Melatonin 3 mg 02/05/21 04:40 02/07/21 02:04 Melatonin 3 Mg Tablet PO 3 mg HS PRN Administration Insomnia Miscellaneous Information 0 each 02/05/21 00:01 Rivaroxaban Dosed For 6 More Days - This Often Changes To 20 Mg Every Evening After - Plea XX 03/07/21 00:00 CLARIFY KYLE Miscellaneous Information 0 each 02/05/21 00:01 Lidocaine Patch - Can We Use The Rx 5% Patch? What Is The Application Site? XX 03/07/21 00:00 CLARIFY [facility] Multivitamins Therapeutic 1 tablet 02/05/21 09:00 02/07/21 08:39 Multivitamins Therapeutic Tab (*Bkc) PO 03/07/21 08:59 1 tablet DAILY KYLE Administration Non-Formulary Medication 1 patch 02/05/21 09:00 Lidocaine Pain Relief TOPICAL 03/07/21 08:59 DAILY KYLE Polyethylene Glycol 17 gm 02/05/21 09:00 02/07/21 08:43 Polyethylene Glycol 3350 17 Gm Powd.Pack PO 03/07/21 08:59 Not Given DAILY KYLE Rivaroxaban 15 mg 02/05/21 09:00 02/07/21 08:39 Rivaroxaban 15 Mg Tablet PO 02/11/21 17:01 15 mg BID KYLE Administration Senna/Docusate Sodium 2 tab 02/05/21 21:00 02/06/21 20:39 Senna/Docusate Sodium Tablet PO 03/07/21 20:59 2 tab HS KYLE Administration Tamsulosin HCl 0.4 mg 02/05/21 11:35 02/07/21 08:39 Tamsulosin Hcl 0.4 Mg Capsule PO 0.4 mg QAM KYLE Administration Thiamine HCl 100 mg 02/05/21 09:00 02/07/21 08:39 Thiamine Hcl 100 Mg Tablet P
[2021-02-07] MEDS: POTASSIUM CHLORIDE 20 MEQ TABLET 40 MEQ PO (11:47)
== END 2021-02-07 13:00 | disposition home health service (06) | DRG 699 ==
LOC: ANHED 22:39 → ANH3MEDSUR 02-05 00:55
PROVIDERS: Physician Assistant; Admitting Provider Internal Medicine; Emergency Provider Emergency Medicine; PCP Family Medicine; Visit Provider Internal Medicine
DX: S37.22XA Contusion of bladder, initial encounter (principal); D62 Acute posthemorrhagic anemia; I82.411 Acute embolism and thrombosis of right femoral vein; I82.431 Acute embolism and thrombosis of right popliteal vein; I82.451 Acute embolism and thrombosis of right peroneal vein; R31.0 Gross hematuria; T45.515A Adverse effect of anticoagulants, initial encounter; N40.1 Benign prostatic hyperplasia with lower urinary tract symptoms; I10 Essential (primary) hypertension; F10.20 Alcohol dependence, uncomplicated; Z66 Do not resuscitate; S32.401D Unspecified fracture of right acetabulum, subsequent encounter for fracture with routine healing; Z79.01 Long term (current) use of anticoagulants; Z87.891 Personal history of nicotine dependence
CPT/HCPCS: 36415; 74177; 76857; 80048; 81001; 85014; 85018; 85025; 85027; 85610; 86850; 86900; 86901; 93970; 96361; 96365; 96375; 97162; 97165; 97535; 99285; A9270; G0378; J0360; J0696; J7030; Q9967

== ENCOUNTER → 2022-12-22 13:18 | Outpatient (CLI) | payer MEDICARE, SELFPAY ==
--- NOTE | ~2022-12-22 | XR_ITS ---
[id number] 12/22/2022 13:51 Indication: Right knee pain Procedure: 2 views right knee Comparison: No prior studies for comparison. Findings: Mild osteoarthritis of the right knee. No fracture, subluxation or dislocation. There is an atomic alignment. No joint effusion. Impression: 1: Mild tricompartment osteoarthritis of the right knee. Reviewed, dictated and finalized at location L. Impression: 1: Mild tricompartment osteoarthritis of the right knee.
--- NOTE | ~2022-12-22 | XR_ITS ---
XR hip RT min 2V 12/22/2022 13:51 Indication: Right hip pain Procedure: 2 views right hip Comparison: 01/19/2021 Findings: Significant progression of severe osteoarthritis of the right hip. There is a side plate an d screws transfixing the right ilium with callus formation from prior healed fracture. Osteopenia. No acute fracture. No soft tissue abnormality. Impression: 1: Significant interval progression of severe osteoarthritis of the right hip. Reviewed, dictated and finalized at location L. Impression: 1: Significant interval progression of severe osteoarthritis of the right hip.
== END ==
PROVIDERS: PCP Nurse Practitioner Family; Visit Provider Nurse Practitioner Family
DX: M17.11 Unilateral primary osteoarthritis, right knee (principal); M16.11 Unilateral primary osteoarthritis, right hip
CPT/HCPCS: 73502; 73560

== ENCOUNTER 2024-09-02 13:54 | Outpatient (CLI) | payer MEDICARE, SELFPAY ==
--- NOTE | ~2024-09-02 | XR_ITS ---
AP and lateral views of the right hip Clinical history: Pain COMPARISON: 12/22/2022 Findings: No acute fracture or dislocation is seen. Status post prior ORIF of the right acetabulum/il iac bone extending to the right superior pubic ramus. Orthopedic hardware alignment is unchanged. The re is progressive severe osteoarthritis of the right hip joint, with progressive remodeling and gerald ening of the right femoral head. There is [id number] appearance, with sclerosis and bony productive change.. Impression: Severe osteoarthritis of the right hip joint, worsened from prior exam, with flattening and remodelin g of the articular surfaces the femoral head, with associated sclerosis and bony productive change. Stable postoperative change with prior ORIF of the right acetabulum and right superior pubic ramus. Reviewed, dictated and finalized at location M. Impression: Severe osteoarthritis of the right hip joint, worsened from prior exam, with fl attening and remodeling of the articular surfaces the femoral head, with associ ated sclerosis and bony productive change. Stable postoperative change with prior ORIF of the right acetabulum and right s uperior pubic ramus.
== END 2024-09-02 13:55 | disposition home or self-care (01) ==
LOC: MICIMG 13:58
PROVIDERS: PCP Physician Assistant; Visit Provider Physician Assistant
DX: M16.11 Unilateral primary osteoarthritis, right hip (principal)
CPT/HCPCS: 73502